=== PATIENT | female | born 1985 | race Caucasian/White ===

== ENCOUNTER 2016-07-25 16:25 | Emergency (ER) | payer SELFPAY ==
[2016-07-25 16:55] VITALS: BP 105/55
[2016-07-25] MEDS ORDERED: HYDROmorphone 1 MG/ML Syringe IVPUSH ONE ×2 (17:22→20:19)
[2016-07-25] MEDS ORDERED: Ondansetron 4 MG/2 ML SDV IVPUSH ONE (17:22)
[2016-07-25] MEDS ORDERED: Sodium Chloride 0.9% 1,000 ML IV SCH (17:30)
--- NOTE | 2016-07-25 18:16 | EDM.PDOC ---
<Richard Echevarria - Last Filed: 07/25/16 18:39> ED HPI GI/ABDOMINAL - General Chief Complaint: Abdominal Pain Stated Complaint: R SIDE PAIN Time Seen by Provider: 07/25/16 16:54 Source of Information: Reports: Patient, Family (Sister), RN notes reviewed History Limitations: Reports: Language barrier (institutional nutrition consultant used) - History of Present Illness INITIAL COMMENTS - FREE TEXT/NARRATIVE: The patient states that she developed right upper quadrant pain this past Friday , 07/21/2016. Is "pinching" in character and waxes and wanes, although has been progressively getting worse. It does not radiate. It is not modifiable with position or food. The patient also reports feeling dizzy this past 07/23/2016, and nauseated today. She states that she had similar pain about 4 years ago, was seen in an ER, and told that she had a fatty liver. 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 Endocrine/Metabolic History: Reports: Obesity/BMI 30+ - Past Surgical History Female Surgical History: Reports: section (x 1), Other (see below) ( Ectopic ) Social & Family History - Tobacco Use Smoking Status *Q: Never Smoker - Alcohol Use Alcohol Use History: Yes Alcohol Use Frequency: Socially - Recreational Drug Use Recreational Drug Use: No - Living Situation & Occupation Living situation: Reports: single, with family (Son & sister) 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) ED ROS GENERAL - Review of Systems Review Of Systems: See Below Constitutional: Reports: no symptoms HEENT: Reports: No symptoms Respiratory: Reports: No Symptoms Cardiovascular: Reports: No symptoms Endocrine: Reports: no symptoms GI/Abdominal: Reports: Constipation (2 weeks ago) : Reports: no symptoms Musculoskeletal: Reports: no symptoms Skin: Reports: no symptoms Neurological: Reports: No Symptoms Psychiatric: Reports: No symptoms Hematologic/Lymphatic: Reports: no symptoms Immunologic: Reports: no symptoms ED EXAM, GI/ABD - Physical Exam Exam: See Below Exam Limited By: Language barrier (institutional nutrition consultant used) General Appearance: alert, WD/WN, no apparent distress Eyes: bilateral: normal appearance, EOMI Ears: normal external exam, hearing grossly normal Nose: normal inspection, no blood Throat/Mouth: Normal inspection, Normal lips, Normal voice, No airway compromise Head: atraumatic, normocephalic Neck: normal inspection, full range of motion Respiratory/Chest: no respiratory distress, lungs clear, normal breath sounds, no accessory muscle use, chest non-tender Cardiovascular: normal peripheral pulses, regular rate, rhythm, no edema, no gallop, no JVD, no murmur, no rub GI/Abdominal: normal bowel sounds, soft, no organomegaly, no distention, no abnormal bruit, no mass, tenderness (Right upper quadrant only. Minimal tenderness in the epigastric region. Nontender elsewhere.), McBurney's sign, other (Obese) Back Exam: normal inspection, full range of motion. No: CVA tenderness (L), CVA tenderness (R) Extremities: normal inspection, normal range of motion, non-tender, normal capillary refill, no pedal edema Neurological: alert, oriented, normal cognition, no motor/sensory deficits Psychiatric: normal affect Skin Exam: Warm, Dry, Intact, Normal color, No rash Lymphatic: no adenopathy Course - Vital Signs Last Recorded V/S: Last Vital Signs Temp 97.8 F 07/25/16 16:52 Pulse 79 07/25/16 16:52 Resp 18 07/25/16 16:52 BP 105/55 L 07/25/16 16:52 Pulse Ox 99 07/25/16 16:52 - Orders/Labs/Meds Orders: Active Orders 24 hr Category Date Time Status Sodium Chloride 0.9% [Normal Saline] 1,000 ml Med 07/25/16 17:30 Active IV ASDIRECTED Sodium Chloride 0.9% [Saline Flush] Med 07/25/16 19:45 Active 10 ml FLUSH ONETIME PRN Medication Orders Sodium Chloride (Normal Saline) 1,000 mls @ 150 mls/hr IV ASDIRECTED HERMAN Last Admin: 07/25/16 17:39 Dose: 150 mls/hr Sodium Chloride (Saline Flush) 10 ml FLUSH ONETIME PRN PRN Reason: IV FLUSH Last Admin: 07/25/16 20:09 Dose: 10 ml Labs: Laboratory Tests 07/25/16 07/25/16 07/25/16 Range/Units 17:48 17:48 18:00 WBC 9.91 (3.98-10.04) K/mm3 RBC 4.56 (3.98-5.22) M/mm3 Hgb 12.5 (11.2-15.7) gm/L Hct 38.8 (34.1-44.9) % MCV 85.1 (79.4-94.8) fl MCH 27.4 (25.6-32.2) pg MCHC 32.2 (32.2-35.5) g/dl RDW Std Deviation 46.6 H (36.4-46.3) fL Plt Count 327 (182-369) K/mm3 MPV 9.2 L (9.4-12.3) fl Neutrophils % (Manual) 64 H (40-60) % Band Neutrophils % 0 (0-10) % Lymphocytes % (Manual) 27 (20-40) % Atypical Lymphs % 0 % Monocytes % (Manual) 6 (2-10) % Eosinophils % (Manual) 3 (0.7-5.8) % Basophils % (Manual) 0 L (0.1-1.2) Platelet Estimate Adequate RBC Morph Comment Normal Sodium 141 (136-145) mEq/L Potassium 3.7 (3.5-5.1) mEq/L Chloride 103 (98-107) mEq/L Carbon Dioxide 26 (21-32) mEq/L Anion Gap 15.7 H (5-15) BUN 19 H (7-18) mg/dL Creatinine 1.1 H (0.55-1.02) mg/dL Est Cr Clr Drug Dosing TNP Estimated GFR (MDRD) 59 (>60) mL/min BUN/Creatinine Ratio 17.3 (14-18) Glucose 106 (74-106) mg/dL Calcium 9.2 (8.5-10.1) mg/dL Total Bilirubin 0.4 (0.2-1.0) mg/dL AST 14 L (15-37) U/L ALT 28 (14-59) U/L Alkaline Phosphatase 78 (46-116) U/L Total Protein 8.1 (6.4-8.2) g/dl Albumin 4.0 (3.4-5.0) g/dl Globulin 4.1 gm/dL Albumin/Globulin Ratio 1.0 (1-2) Lipase 339 (73-393) U/L Urine Color (Yellow) Urine Appearance (Clear) Urine pH (5.0-8.0) Ur Specific Mcleod (1.005-1.030) Urine Protein (Negative) Urine Glucose (UA) (Negative) Urine Ketones (Negative) Urine Occult Blood (Negative) Urine Nitrite (Negative) Urine Bilirubin (Negative) Urine Urobilinogen (0.2-1.0) Ur Leukocyte Esterase (Negative) Urine RBC (0-5) /hpf Urine WBC (0-5) /hpf Ur Squamous Epith Cells (0-5) /hpf Amorphous Sediment (NOT SEEN) /hpf Urine Bacteria (FEW) /hpf Urine Mucus (FEW) /hpf Urine HCG, Qual Negative (NEGATIVE) 07/25/16 Range/Units 18:00 WBC (3.98-10.04) K/mm3 RBC (3.98-5.22) M/mm3 Hgb (11.2-15.7) gm/L Hct (34.1-44.9) % MCV (79.4-94.8) fl MCH (25.6-32.2) pg MCHC (32.2-35.5) g/dl RDW Std Deviation (36.4-46.3) fL Plt Count (182-369) K/mm3 MPV (9.4-12.3) fl Neutrophils % (Manual) (40-60) % Band Neutrophils % (0-10) % Lymphocytes % (Manual) (20-40) % Atypical Lymphs % % Monocytes % (Manual) (2-10) % Eosinophils % (Manual) (0.7-5.8) % Basophils % (Manual) (0.1-1.2) Platelet Estimate RBC Morph Comment Sodium (136-145) mEq/L Potassium (3.5-5.1) mEq/L Chloride (98-107) mEq/L Carbon Dioxide (21-32) mEq/L Anion Gap (5-15) BUN (7-18) mg/dL Creatinine (0.55-1.02) mg/dL Est Cr Clr Drug Dosing Estimated GFR (MDRD) (>60) mL/min BUN/Creatinine Ratio (14-18) Glucose (74-106) mg/dL Calcium (8.5-10.1) mg/dL Total Bilirubin (0.2-1.0) mg/dL AST (15-37) U/L ALT (14-59) U/L Alkaline Phosphatase (46-116) U/L Total Protein (6.4-8.2) g/dl Albumin (3.4-5.0) g/dl Globulin gm/dL Albumin/Globulin Ratio (1-2) Lipase (73-393) U/L Urine Color Yellow (Yellow) Urine Appearance Clear (Clear) Urine pH 6.5 (5.0-8.0) Ur Specific Mcleod > or = 1.030 (1.005-1.030) Urine Protein 1+ H (Negative) Urine Glucose (UA) Negative (Negative) Urine Ketones Negative (Negative) Urine Occult Blood Negative (Negative) Urine Nitrite Negative (Negative) Urine Bilirubin Negative (Negative) Urine Urobilinogen 1.0 (0.2-1.0) Ur Leukocyte Esterase Negative (Negative) Urine RBC 0-5 (0-5) /hpf Urine WBC 0-5 (0-5) /hpf Ur Squamous Epith Cells 0-5 (0-5) /hpf Amorphous Sediment Few H (NOT SEEN) /hpf Urine Bacteria Few (FEW) /hpf Urine Mucus Few (FEW) /hpf Urine HCG, Qual (NEGATIVE) Meds: Medications Generic Name Dose Route Start Last Admin Trade Name Freq PRN Reason Stop Dose Admin Sodium Chloride 1,000 mls @ 150 mls/hr 07/25/16 17:30 07/25/16 17:39 Normal Saline IV 150 mls/hr ASDIRECTED HERMAN Administration Sodium Chloride 10 ml 07/25/16 19:45 07/25/16 20:09 Saline Flush FLUSH 10 ml ONETIME PRN Administration IV FLUSH Discontinued Medications Generic Name Dose Route Start Last Admin Trade Name Freq PRN Reason Stop Dose Admin Diatrizoate Meglum/Diatrizoate Sod 90 ml 07/25/16 19:45 07/25/16 20:09 Gastrografin 37% PO 07/25/16 19:46 90 ml ONETIME ONE Administration Hydromorphone HCl 1 mg 07/25/16 17:22 07/25/16 17:38 Dilaudid IVPUSH 07/25/16 17:23 1 mg ONETIME ONE Administration Hydromorphone HCl 1 mg 07/25/16 20:19 07/25/16 20:27 Dilaudid IVPUSH 07/25/16 20:20 1 mg ONETIME ONE Administration Iopamidol 150 ml 07/25/16 19:45 07/25/16 20:09 Isovue-300 (61%) IVPUSH 07/25/16 19:46 150 ml ONETIME ONE Administration Ondansetron HCl 4 mg 07/25/16 17:22 07/25/16 17:39 Zofran IVPUSH 07/25/16 17:23 4 mg ONETIME ONE Administration - Re-Assessments/Exams Free Text/Narrative Re-Assessment/Exam: 07/25/16 19:[address] Landa, and care of the patient turned over to him at this time for change of shift. Departure - Departure Disposition: Home, Self-Care 01 Clinical Impression: Abdominal pain Qualifiers: Abdominal location: right upper quadrant Qualified Code(s): R10.11 - Right upper quadrant pain Prescriptions: oxyCODONE HCl/Acetaminophen [Percocet 5-325 mg Tablet] 1 - 2 each PO Q6HR PRN # 20 tablet PRN Reason: Pain Referrals: Neville Hernandez MD [Physician] - 1 Week Forms: ED Department Discharge Additional Instructions: Someone from Dr Flores office will call you with a time to come in to be seen. Avoid any fried fatty food. Take the percocet as needed for pain. Please return if you are worse. <Twan Landa - Last Filed: 07/25/16 21:21> Course - Re-Assessments/Exams Free Text/Narrative Re-Assessment/Exam: 07/25/16 21:[address] Echevarria. The patient's CBC and CMP look good. Her HCG is negative. Her UA does not show a UTI. Her CT shows mild increased stool within the colon. No additional abnormality is seen on CT study of the abdomen and pelvis. She had more pain so I ordered more dilaudid 1mg IV and that helped. I went in with the I pad with a Welsh interpretor to give her results and I answered her questions. I will give her some thing for pain and have her follow up with Dr Hernandez and avoid any fatty fried food. Departure - Departure Time of Disposition: 21:20 Condition: good
[2016-07-25] MEDS ORDERED: Iopamidol 612 MG/ML 150 ML Bottle IVPUSH ONE (19:45)
[2016-07-25] MEDS ORDERED: Diatrizoate Meglumine/Diatrizoate Sodium 37% 120 ML Bottle PO ONE (19:45)
[2016-07-25] MEDS ORDERED: Sodium Chloride 0.9% 10 ML Syringe FLUSH PRN (19:45)
--- NOTE | 2016-07-25 20:28 | CT ---
CT abdomen and pelvis Technique: Multiple axial sections were obtained from above the dome of the diaphragm inferiorly through the pubic symphysis. Intravenous and oral contrast was utilized. Delayed images were also obtained through the bladder. Comparison: No previous abdominal imaging. Findings: Visualized lung bases are clear. Liver shows no focal parenchymal abnormality. Spleen appears within normal limits. Adrenal glands show no nodule. Kidneys show symmetric contrast enhancement without hydronephrosis or mass. Pancreas is within normal limits. Gallbladder shows no calcified gallstones. Aorta shows no aneurysmal dilatation. No retroperitoneal adenopathy is seen. No mesenteric abnormalities are seen. No pelvic mass or adenopathy is seen. Appendix is seen which appears normal. No inflammatory change or free fluid is seen within the abdomen or pelvis. No bowel dilatation is seen. Increased stool is noted within the colon. Bone window settings were reviewed which appear within normal limits for the patient's age. Delayed images shows contrast within the distal ureters and within the bladder. Impression: 1. Mild increased stool within the colon. 2. No additional abnormality is seen on CT study of the abdomen and pelvis. Diagnostic code #2
== END 2016-07-25 21:45 | disposition home or self-care (01) ==
LOC: JD.ED 16:25
DX: R10.11 Right upper quadrant pain (principal); E66.9 Obesity, unspecified; Z79.899 Other long term (current) drug therapy
CPT/HCPCS: 36415; 74177; 80053; 81001; 81025; 83690; 85025; 96361; 96374; 96375; 96376; 99285; J1170; J2405; J7040; J7050; P9612; Q9963; Q9967; 99284

== ENCOUNTER 2016-08-05 07:21 | Day surgery (SDC) | payer SELFPAY ==
[~2016-08-05 07:21] MED LIST: Lactated Ringers 1,000 ML IV SCH; Lidocaine 1%/Sod Bicarbonate in NS 8.4% 1 ML Syringe IV PRN; Sodium Chloride 0.9% 10 ML Syringe FLUSH PRN
--- NOTE | 2016-08-05 07:44 | PCM.PREANE ---
Preanesthetic Assessment - Anesthesia/Transfusion/Family Hx Anesthesia History: Prior Anesthesia Without Reaction Family History of Anesthesia Reaction: No Transfusion History: No Prior Transfusion(s) - Review of Systems General: No Symptoms Pulmonary: No Symptoms Cardiovascular: No Symptoms Gastrointestinal: Abdominal pain Neurological: Numbness (toes and underside of right arm on and off) - Physical Assessment NPO Status Date: 08/04/16 NPO Status Time: 22:00 Pulse: 76 O2 Sat by Pulse Oximetry: 97 Respiratory Rate: 16 Blood Pressure: 112/72 Temperature: 36.8 C Height: 1.52 m Weight: 89.811 kg ASA Class: 2 Mental Status: Alert & Oriented x3 Airway Class: Mallampati = 2 Dentition: Reports: Normal Dentition Thyro-Mental Finger Breadths: 2 Mouth Opening Finger Breadths: 2 ROM/Head Extension: Full Lungs: Clear to auscultation, Normal respiratory effort Cardiovascular: Regular Rate, Regular Rhythm, No Murmurs - Allergies Allergies/Adverse Reactions: Allergies Allergy/AdvReac Type Severity Reaction Status Date / Time No Known Allergies Allergy Verified 07/25/16 16:55 - Blood Blood Available: No Product(s) Available: None - Anesthesia Plan Pre-Op Medication Ordered: None - Acknowledgements Anesthesia Type Planned: MAC Pt an Appropriate Candidate for the Planned Anesthesia: Yes Alternatives and Risks of Anesthesia Discussed w Pt/Guardian: Yes Pt/Guardian Understands and Agrees with Anesthesia Plan: Yes PreAnesthesia Questionnaire HEENT History: Reports: None Cardiovascular History: Reports: High cholesterol Respiratory History: Reports: None Gastrointestinal History: Reports: Chronic constipation, Other (see below) Other Gastrointestinal History: RUQ pain 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 , , Other (see below) Other OB/BYN History: bacterial vaginosis Musculoskeletal History: Reports: None Neurological History: Reports: None Psychiatric History: Reports: Anxiety Endocrine/Metabolic History: Reports: Obesity/BMI 30+ Hematologic History: Reports: None Immunologic History: Reports: None Oncologic (Cancer) History: Reports: None Dermatologic History: Reports: Other (see below) Other Dermatologic History: acanthesis nigricans - Past Surgical History Head Surgeries/Procedures: Reports: None Female Surgical History: Reports: section, Tubal ligation, Other ( see below) - SUBSTANCE USE Smoking Status *Q: Current Some Day Smoker Tobacco Use Within Last Twelve Months: Cigarettes Second Hand Smoke Exposure: Yes Days Per Week of Alcohol Use: 1 Number of Drinks Per Day: 0 Total Drinks Per Week: 0 Recreational Drug Use History: No - HOME MEDS Home Medications: Home Meds Docusate Sodium [Colace] 100 mg PO ASDIRECTED PRN 07/25/16 [History] Polyethylene Glycol 3350 [MiraLAX] 1 dose PO DAILY PRN 07/25/16 [History] oxyCODONE HCl/Acetaminophen [Percocet 5-325 mg Tablet] 1 - 2 each PO Q6HR PRN # 20 tablet 07/25/16 [Rx] - CURRENT (IN HOUSE) MEDS Current Meds: Current Medications Lactated Ringer's (Ringers, Lactated) 1,000 mls @ 125 mls/hr IV ASDIRECTED HERMAN Stop: 08/05/16 23:00 Lidocaine/Sodium Bicarbonate (Buffered Lidocaine 1% In Ns 8.4%) 0.25 ml IV ONETIME PRN PRN Reason: Prior to IV Start Stop: 08/05/16 18:00 Sodium Chloride (Saline Flush) 10 ml FLUSH ASDIRECTED PRN PRN Reason: Keep Vein Open Stop: 08/05/16 18:00 Preanesthetic Assessment - ALLERGIES Allergies/Adverse Reactions: Allergies Allergy/AdvReac Type Severity Reaction Status Date / Time No Known Allergies Allergy Verified 07/25/16 16:55
[2016-08-05] MEDS ORDERED: Midazolam 1 MG/ML 2 ML SDV ONE (08:18)
[2016-08-05] MEDS ORDERED: Lidocaine 1% 4 ML ONE (08:18)
[2016-08-05] MEDS ORDERED: Propofol 200 MG/20 ML SDV ONE (08:18)
--- NOTE | 2016-08-05 09:01 | PCM.OPNOTE ---
- General Post-Op/Procedure Note Date of Surgery/Procedure: 08/05/16 Operative Procedure(s): EGD with antral and gastric biopsies Findings: normal EGD Pre Op Diagnosis: dyspepsia Post-Op Diagnosis: normal EGD Anesthesia Technique: MAC, Moderate sedation Primary Surgeon: Neville Hernandez Pathology: gastric and antral biopsies x2 EBL in mLs: 0 Complications: None Condition: Good Free Text/Narrative:: After adequate IV sedation and analgesia was obtained the patient was placed on her left side. Through a bite lock a lubricated upper endoscope was inserted into the esophagus and then advanced under direct vision to the stomach. Additional air was given here. The pylorus was entered to the second part of the duodenum. The second, and first portions were endoscopically normal with no inflammation. The antrum was also unremarkable. The retroflexed view revealed no hiatal hernia, and a normal fundus. The body of the stomach was normal. The gastric motility was grossly normal. Because of the normal endoscopic findings I took 2 random biopsies of the antrum and body of the stomach for histologic review given this patient's history. The scope was withdrawn to the GE junction , which was unremarkable. The remainder of the esophagus was endoscopically normal. Air was removed, as I finished the procedure, which she tolerated well. Occupational Therapy Asst photographs taken for the patient and for the record.
[2016-08-05 09:32] VITALS: BP 114/82
== END 2016-08-05 10:01 | disposition home or self-care (01) ==
LOC: JD.SDS 07:21
PROVIDERS: ATTEND Surgery
PROC: 0DB68ZZ Excision of Stomach, Via Natural or Artificial Opening Endoscopic (ICD-10-PCS; principal; 2016-08-05)
PROC: 0DB78ZZ Excision of Stomach, Pylorus, Via Natural or Artificial Opening Endoscopic (ICD-10-PCS; 2016-08-05)
DX: R10.13 Epigastric pain (principal); F41.9 Anxiety disorder, unspecified; E66.01 Morbid (severe) obesity due to excess calories; Z68.38 Body mass index [BMI] 38.0-38.9, adult; E78.00 Pure hypercholesterolemia, unspecified; K59.09 Other constipation; F17.210 Nicotine dependence, cigarettes, uncomplicated
CPT/HCPCS: 43239; 88305; J2250; J7120; J2704

== ENCOUNTER 2017-10-06 19:55 | Emergency (ER) | payer SELFPAY ==
[2017-10-06] MEDS ORDERED: Ondansetron 4 MG/2 ML SDV ONE (21:22)
[2017-10-06] MEDS ORDERED: Sodium Chloride 0.9% 1,000 ML ONE (21:22)
[2017-10-06] MEDS ORDERED: Dicyclomine 10 MG Cap ONE (21:22)
[2017-10-06] MEDS ORDERED: HYDROmorphone 0.5 MG/0.5 ML SYRINGE ONE (21:23)
[2017-10-07 03:12] VITALS: BP 113/75
--- NOTE | 2017-10-07 10:26 | CR ---
Abdominal series: Supine and upright views of the abdomen were obtained as well as frontal view of the chest. Comparison: No prior plain film exam. Heart size and mediastinum are normal. Lungs are clear. Bowel gas pattern appears normal. No abnormal calcifications or soft tissue abnormality is seen. Bony structures are unremarkable. No free air is seen. Impression: 1. No abnormality is identified on abdominal series. Diagnostic code #1
--- NOTE | 2017-10-08 14:25 | US ---
Limited abdominal ultrasound: Multiple real-time images of the upper right abdomen were obtained. Comparison: Previous right upper quadrant abdominal ultrasound of 07/29/16 is available. Findings: Liver shows no focal parenchymal abnormality. Liver is slightly echogenic in relation to the kidney raising the possibility of fatty infiltration. Gallbladder contains no gallstones. No gallbladder wall thickening or biliary ductal dilatation is seen. Right kidney shows no hydronephrosis or mass and has a length of 11.7 cm. Pancreas is incompletely seen. Visualized portions of the pancreas are within normal limits. Impression: 1. Findings suspicious for fatty infiltration within the liver. 2. No additional abnormality is appreciated on right upper quadrant abdominal ultrasound. Diagnostic code #3 I agree with preliminary report from [facility], finalized at 10/06/17, 11:46 PM Central Time
--- NOTE | 2017-10-09 11:49 | EDM.PDOC ---
ED HPI GENERAL MEDICAL PROBLEM - General Stated Complaint: PANIC ATTACK Time Seen by Provider: 10/06/17 20:37 Source of Information: Reports: Patient, Family History Limitations: Reports: Language Barrier - History of Present Illness INITIAL COMMENTS - FREE TEXT/NARRATIVE: Patient is a 31-year-old female presents ED complaining of nausea, headache, and right-sided upper quadrant abdominal pain for the past 2 weeks. Patient states pain worsens with eating greasy foods. Pain is intermittent sharp achy at times. With no radiation. She has had discomfort approximate 1 year ago had testing done on her gallbladder with no definitive diagnosis twice she's having pain to the right side. She's had no follow-up since. Questions being . Last menstrual cycle was 09/18/2017. She denies any fever, shortness breath, chest pain, diarrhea, dysuria, acid reflux, or any additional complaints. Last meal was a partially 3 hours ago consisting of 1 talk oh. She is a history of type 2 diabetes and is on metformin. She is history of ectopic and C- section. She smokes one pack a month. Alcohol use occasionally. Denies any recreational drug use. - Related Data Allergies Allergy/AdvReac Type Severity Reaction Status Date / Time No Known Allergies Allergy Verified 10/07/17 15:35 Home Meds: Home Meds Docusate Sodium [Colace] 100 mg PO ASDIRECTED PRN 07/25/16 [History] Polyethylene Glycol 3350 [MiraLAX] 1 dose PO DAILY PRN 07/25/16 [History] oxyCODONE HCl/Acetaminophen [Percocet 5-325 mg Tablet] 1 - 2 each PO Q6HR PRN # 20 tablet 07/25/16 [Rx] Vitamin E 1 tab PO DAILY 08/05/16 [History] Past Medical History HEENT History: Reports: None Cardiovascular History: Reports: High Cholesterol Respiratory History: Reports: None Gastrointestinal History: Reports: Chronic Constipation, Other (See Below) Other Gastrointestinal History: RUQ pain 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 , , Other (See Below) Other OB/BYN History: bacterial vaginosis Musculoskeletal History: Reports: None Neurological History: Reports: None Psychiatric History: Reports: Anxiety Endocrine/Metabolic History: Reports: Obesity/BMI 30+ Hematologic History: Reports: None Immunologic History: Reports: None Oncologic (Cancer) History: Reports: None Dermatologic History: Reports: Other (See Below) Other Dermatologic History: acanthesis nigricans - Past Surgical History Female Surgical History: Reports: Section, Tubal Ligation, Other ( See Below) Social & Family History - Living Situation & Occupation Living situation: Reports: Single, with Family Occupation: Employed ED ROS GENERAL - Review of Systems Review Of Systems: ROS reveals no pertinent complaints other than HPI. ED EXAM, GI/ABD - Physical Exam Exam: See Below Exam Limited By: Language Barrier General Appearance: Alert, WD/WN, No Apparent Distress, Obese Ears: Hearing Grossly Normal Nose: Normal Inspection Throat/Mouth: Normal Voice, No Airway Compromise Neck: Normal Inspection, Supple Respiratory/Chest: No Respiratory Distress, Lungs Clear, Normal Breath Sounds, No Accessory Muscle Use, Chest Non-Tender Cardiovascular: Normal Peripheral Pulses, Regular Rate, Rhythm GI/Abdominal Exam: Normal Bowel Sounds, Soft, No Organomegaly, No Distention, Tender (Positive Ortega sign. Negative McBurney's point. No adnexal tenderness. No epigastric pain.) Back Exam: Normal Inspection. No: CVA Tenderness (L), CVA Tenderness (R) Extremities: Normal Inspection Neurological: Alert, Oriented, CN II-XII Intact, Normal Cognition, No Motor/ Sensory Deficits Psychiatric: Normal Affect, Normal Mood Skin Exam: Warm, Dry, Intact, Normal Color, No Rash Course - Vital Signs Last Recorded V/S: Last Vital Signs Temp 97.8 F 10/07/17 03:10 Pulse 90 10/07/17 03:10 Resp 18 10/07/17 03:10 BP 113/75 10/07/17 03:10 Pulse Ox 99 10/07/17 03:10 - Orders/Labs/Meds Labs: Laboratory Tests 10/06/17 10/06/17 10/06/17 Range/Units 20:54 20:54 20:54 WBC 9.06 (3.98-10.04) K/mm3 RBC 4.51 (3.98-5.22) M/mm3 Hgb 12.8 (11.2-15.7) gm/L Hct 39.1 (34.1-44.9) % MCV 86.7 (79.4-94.8) fl MCH 28.4 (25.6-32.2) pg MCHC 32.7 (32.2-35.5) g/dl RDW Std Deviation 46.3 (36.4-46.3) fL Plt Count 371 H (182-369) K/mm3 MPV 8.9 L (9.4-12.3) fl Neutrophils % (Manual) 58 (40-60) % Lymphocytes % (Manual) 38 (20-40) % Monocytes % (Manual) 1 L (2-10) % Eosinophils % (Manual) 3 (0.7-5.8) % Platelet Estimate Adequate RBC Morph Comment Normal Sodium 138 (136-145) mEq/L Potassium 3.7 (3.5-5.1) mEq/L Chloride 101 (98-107) mEq/L Carbon Dioxide 25 (21-32) mEq/L Anion Gap 15.7 H (5-15) BUN 13 (7-18) mg/dL Creatinine 0.9 (0.55-1.02) mg/dL Est Cr Clr Drug Dosing 72.29 mL/min Estimated GFR (MDRD) > 60 (>60) mL/min BUN/Creatinine Ratio 14.4 (14-18) Glucose 107 H (74-106) mg/dL Calcium 9.6 (8.5-10.1) mg/dL Total Bilirubin 0.4 (0.2-1.0) mg/dL AST 43 H (15-37) U/L ALT 74 H (14-59) U/L Alkaline Phosphatase 75 (46-116) U/L C-Reactive Protein 0.6 (<1.0) mg/dL Total Protein 8.6 H (6.4-8.2) g/dl Albumin 4.0 (3.4-5.0) g/dl Globulin 4.6 gm/dL Albumin/Globulin Ratio 0.9 L (1-2) Lipase 267 (73-393) U/L Urine Color (Yellow) Urine Appearance (Clear) Urine pH (5.0-8.0) Ur Specific [place] (1.005-1.030) Urine Protein (Negative) Urine Glucose (UA) (Negative) Urine Ketones (Negative) Urine Occult Blood (Negative) Urine Nitrite (Negative) Urine Bilirubin (Negative) Urine Urobilinogen (0.2-1.0) Ur Leukocyte Esterase (Negative) Urine RBC (0-5) /hpf Urine WBC (0-5) /hpf Ur Epithelial Cells (0-5) /hpf Urine Bacteria (FEW) /hpf Urine Mucus (FEW) /hpf Urine HCG, Qual Negative (NEGATIVE) 10/06/17 Range/Units 20:54 WBC (3.98-10.04) K/mm3 RBC (3.98-5.22) M/mm3 Hgb (11.2-15.7) gm/L Hct (34.1-44.9) % MCV (79.4-94.8) fl MCH (25.6-32.2) pg MCHC (32.2-35.5) g/dl RDW Std Deviation (36.4-46.3) fL Plt Count (182-369) K/mm3 MPV (9.4-12.3) fl Neutrophils % (Manual) (40-60) % Lymphocytes % (Manual) (20-40) % Monocytes % (Manual) (2-10) % Eosinophils % (Manual) (0.7-5.8) % Platelet Estimate RBC Morph Comment Sodium (136-145) mEq/L Potassium (3.5-5.1) mEq/L Chloride (98-107) mEq/L Carbon Dioxide (21-32) mEq/L Anion Gap (5-15) BUN (7-18) mg/dL Creatinine (0.55-1.02) mg/dL Est Cr Clr Drug Dosing mL/min Estimated GFR (MDRD) (>60) mL/min BUN/Creatinine Ratio (14-18) Glucose (74-106) mg/dL Calcium (8.5-10.1) mg/dL Total Bilirubin (0.2-1.0) mg/dL AST (15-37) U/L ALT (14-59) U/L Alkaline Phosphatase (46-116) U/L C-Reactive Protein (<1.0) mg/dL Total Protein (6.4-8.2) g/dl Albumin (3.4-5.0) g/dl Globulin gm/dL Albumin/Globulin Ratio (1-2) Lipase (73-393) U/L Urine Color Yellow (Yellow) Urine Appearance Clear (Clear) Urine pH 6.5 (5.0-8.0) Ur Specific [place] 1.025 (1.005-1.030) Urine Protein Trace H (Negative) Urine Glucose (UA) Negative (Negative) Urine Ketones Negative (Negative) Urine Occult Blood Negative (Negative) Urine Nitrite Negative (Negative) Urine Bilirubin Negative (Negative) Urine Urobilinogen 0.2 (0.2-1.0) Ur Leukocyte Esterase Negative (Negative) Urine RBC 0-5 (0-5) /hpf Urine WBC 0-5 (0-5) /hpf Ur Epithelial Cells 0-5 (0-5) /hpf Urine Bacteria Few (FEW) /hpf Urine Mucus Few (FEW) /hpf Urine HCG, Qual (NEGATIVE) Meds: Medications Discontinued Medications Generic Name Dose Route Start Last Admin Trade Name Charles PRN Reason Stop Dose Admin Dicyclomine HCl Confirm 10/06/17 21:22 Bentyl Administered 10/06/17 21:23 Dose 10 mg .ROUTE .STK-MED ONE Hydromorphone HCl Confirm 10/06/17 21:23 Dilaudid Administered 10/06/17 21:24 Dose 0.5 mg .ROUTE .STK-MED ONE Sodium Chloride Confirm 10/06/17 21:22 Normal Saline Administered 10/06/17 21:23 Dose 1,000 mls @ as directed .ROUTE .STK-MED ONE Ondansetron HCl Confirm 10/06/17 21:22 Zofran Administered 10/06/17 21:23 Dose 4 mg .ROUTE .STK-MED ONE - Re-Assessments/Exams Free Text/Narrative Re-Assessment/Exam: IV established with NS 150 mL per hour, Zofran 4 mg IVP, Dilaudid 0.5 mg IVP, Bentyl 10 mg. Initial labs and studies include CMP, CBC, CRP, lipase, UA, urine hCG, direct bilirubin, GGT, and chest x-ray with abdomen series. Abdomen limited ultrasound ordered to evaluate gallbladder HCG negative. UA trace protein otherwise no other concerning findings. Lipase 267. AST 43. ALT 75. Sodium 1:30, potassium 3.7, direct bilirubin 0.1, GGT 39, creatinine 0.93, CRP 0.6. White blood count 9.06, hemoglobin 12.8, platelet count 371, neutrophil 58. Ultrasound right upper quadrant impression: Probable fatty liver. X-ray of the chest did not reveal any acute findings. Final interpretation is pending. X-ray of the abdomen revealed increased stool pattern along the right hemoglobin with nonspecific air pattern. I will obtain a HIDA scan to evaluate gallbladder function. She will need to follow-up with her primary care provider. 10/09/2017 HIDA scan impression: Normal biliary HIDA scan with normal gallbladder ejection fraction. I did call the patient and provide results. She was instructed to followup with PCP. Departure - Departure Time of Disposition: 10:46 Disposition: Home, Self-Care 01 Condition: Good Clinical Impression: Biliary colic Constipation Qualifiers: Constipation type: unspecified constipation type Qualified Code(s): K59.00 - Constipation, unspecified - Discharge Information Referrals: PCP,None [Primary Care Provider] -
== END 2017-10-07 00:08 | disposition home or self-care (01) ==
LOC: JD.ED 19:55
DX: K80.50 Calculus of bile duct without cholangitis or cholecystitis without obstruction (principal); K59.00 Constipation, unspecified; Z79.899 Other long term (current) drug therapy; E78.00 Pure hypercholesterolemia, unspecified
CPT/HCPCS: 36415; 74022; 76705; 80053; 81001; 81025; 83690; 85007; 85027; 86140; 96361; 96374; 96375; 99284; A9270; J1170; J2405; J7040

== ENCOUNTER 2019-07-26 07:14 | Inpatient (IN) | payer OTHER, MEDICAID ==
[~2019-07-26 07:14] MED LIST changes: +Bupivacaine 0.25% 10 ML SDV ONE; -Lactated Ringers 1,000 ML IV SCH; -Lidocaine 1%/Sod Bicarbonate in NS 8.4% 1 ML Syringe IV PRN; -Sodium Chloride 0.9% 10 ML Syringe FLUSH PRN
[2019-07-26] MEDS ORDERED: Famotidine 20 MG Tab PO PRN (08:05)
[2019-07-26] MEDS ORDERED: Ondansetron 4 MG/2 ML SDV IVPUSH PRN ×2 (08:05→08:08)
[2019-07-26] MEDS ORDERED: Acetaminophen 325 MG Tab PO PRN (08:05)
[2019-07-26] MEDS ORDERED: Lidocaine 1% 50 ML MDV INJECT ONE (08:05)
[2019-07-26] MEDS ORDERED: Sodium Chloride 0.9% 10 ML Syringe FLUSH PRN (08:05)
[2019-07-26] MEDS ORDERED: fentaNYL 100 MCG/2 ML SDV EPIDUR PRN (08:08)
[2019-07-26] MEDS ORDERED: ePHEDrine 50 MG/ML SDV IVPUSH PRN (08:08)
--- NOTE | 2019-07-26 08:11 | PCM.PREANE ---
Preanesthetic Assessment - Procedure Proposed Procedure: Epidural - Anesthesia/Transfusion/Family Hx Anesthesia History: Prior Anesthesia Without Reaction Family History of Anesthesia Reaction: No Transfusion History: Unknown Intubation History: Unknown - Review of Systems General: No Symptoms Pulmonary: No Symptoms (Former smoker/no longer smokes) Cardiovascular: No Symptoms (Elevated cholesterol) Gastrointestinal: No Symptoms (GERD with ), Constipation (chronic) Neurological: Tingling (bilateral feet due to anxiety per patient) Other: Reports: Diabetes (pre-diabetes), Liver Problems (fatty liver), Anxiety ( 2008 nervous breakdown) - Physical Assessment NPO Status Date: 07/26/19 NPO Status Time: 09:30 Vital Signs: HR:76 BP:112/86 Resp:16 Sat:96% Temp:98.1 Height: 1.52 m Weight: 103 kg ASA Class: 2 Mental Status: Alert & Oriented x3 Airway Class: Mallampati = 2 Dentition: Reports: Normal Dentition, Caries Thyro-Mental Finger Breadths: 3 Mouth Opening Finger Breadths: 3 ROM/Head Extension: Full Lungs: Clear to Auscultation, Normal Respiratory Effort Cardiovascular: Regular Rate, Regular Rhythm, No Murmurs - Allergies Allergies/Adverse Reactions: Allergies Allergy/AdvReac Type Severity Reaction Status Date / Time No Known Allergies Allergy Verified 10/07/17 15:35 - Anesthesia Plan Pre-Op Medication Ordered: None - Acknowledgements Anesthesia Type Planned: Epidural Pt an Appropriate Candidate for the Planned Anesthesia: Yes Alternatives and Risks of Anesthesia Discussed w Pt/Guardian: Yes Pt/Guardian Understands and Agrees with Anesthesia Plan: Yes PreAnesthesia Questionnaire HEENT History: Reports: None Cardiovascular History: Reports: High Cholesterol Respiratory History: Reports: None Gastrointestinal History: Reports: Chronic Constipation, Other (See Below) Other Gastrointestinal History: RUQ pain [employer]ET[employer]IN[employer]IAN 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 , , Other (See Below) Other OB/BYN History: bacterial vaginosis Musculoskeletal History: Reports: None Neurological History: Reports: None Psychiatric History: Reports: Anxiety Endocrine/Metabolic History: Reports: Obesity/BMI 30+ Hematologic History: Reports: None Immunologic History: Reports: None Oncologic (Cancer) History: Reports: None Dermatologic History: Reports: Other (See Below) Other Dermatologic History: acanthesis nigricans - Past Surgical History Female Surgical History: Reports: Section, Tubal Ligation, Other ( See Below) - HOME MEDS Home Medications: Home Meds Docusate Sodium [Colace] 100 mg PO ASDIRECTED PRN 07/25/16 [History] Polyethylene Glycol 3350 [MiraLAX] 1 dose PO DAILY PRN 07/25/16 [History] oxyCODONE HCl/Acetaminophen [Percocet 5-325 mg Tablet] 1 - 2 each PO Q6HR PRN # 20 tablet 07/25/16 [Rx] Vitamin E 1 tab PO DAILY 08/05/16 [History] - CURRENT (IN HOUSE) MEDS Current Meds: Current Medications Fentanyl/Bupivacaine HCl (Fentanyl/Bupivacaine/Ns 2 Mcg-0.125% 100 Ml) 100 ml EPIDUR ASDIRECTED HERMAN
[2019-07-26] MEDS ORDERED: Oxytocin/Lactated Ringers 10 UNIT/1,000 ML BAG IV SCH ×2 (08:15)
[2019-07-26] MEDS ORDERED: Bupivacaine/fentaNYL/NS 100 ML Bag EPIDUR SCH (08:15)
[2019-07-26] MEDS: Lactated Ringers 1,000 ML IV SCH ×4 (08:46→23:53)
--- NOTE | 2019-07-26 17:26 | PCM.LDHP ---
L&D History of Present Illness - General Date of Service: 07/26/19 Admit Problem/Dx: Patient Status Order with Admit Dx/Problem 07/26/19 08:05 Patient Status [ADT] Routine Admission Diagnosis/Problem Admission Diagnosis/Problem Source of Information: Patient History Limitations: Reports: Language Barrier - History of Present Illness Introduction:: 33 year old A2 female at 39+5 weeks gestation with EDC of 07/28/19 based on early ultrasound. She is admitted for elective induction of labor, and she is TOLAC. First baby delivered by section due to failure to progress and distress and baby was OP presentation. She consulted with Dr. Ndiaye to discuss risks and benefits of TOLAC and she would like to attempt vaginal delivery. She is GBS negative, Blood type O positive. She has a history of prediabetes and was on metformin for a period before her . HEr A1C was 5.60 in 01/2019 and we just rechecked it and it is still wnl. Her 1 hour glucola was 131. She had the Prequel test that was negative for Trisomy and female sex, XX. Her infectious disease testing was all negative. She has not been having contractions. Cervix was 1-2 cm, soft, 30% effaced and station -3 on admission. Retana catheter was placed through the cervical os using speculum and ring forceps and 30 ml balloon was inflated and traction applied by taping it to her leg. Pitocin IV was also started for induction of labor. Consent form signed for TOLAC and possible section. Dr. Loera is front services agent for OB and I notified him this am about the patient being induced. CBC and type and screen ordered. - Related Data Allergies/Adverse Reactions: Allergies Allergy/AdvReac Type Severity Reaction Status Date / Time No Known Allergies Allergy Verified 07/26/19 10:45 Home Medications: Home Meds Aspirin 81 mg PO DAILY 07/26/19 [History] Docusate Sodium [Colace] 100 mg PO BID PRN 07/26/19 [History] No122/Iron/Folic Acid [ Multi Tablet] 1 each PO DAILY 07/26/19 [History] polyethylene glycoL 3350 [MiraLAX] 17 gm PO DAILY 07/26/19 [History] Past Medical History HEENT History: Reports: None Cardiovascular History: Reports: High Cholesterol Respiratory History: Reports: None Gastrointestinal History: Reports: Chronic Constipation, Fatty Liver, Other ( See Below) Other Gastrointestinal History: RUQ pain 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 , , Other (See Below) Other OB/BYN History: bacterial vaginosis Musculoskeletal History: Reports: None Neurological History: Reports: None Psychiatric History: Reports: Anxiety Endocrine/Metabolic History: Reports: Hypothyroidism (She was on low dose levothyroxine for a time, but stopped taking the medicine and TSH in early course was wnl.), Obesity/BMI 30+, Other (See Below) (Prediabetes, and was on metformin for a period of time over a year ago, prior to getting .) Other Endocrine/Metabolic History: Pre diabetes, Elevated TSH Hematologic History: Reports: None Immunologic History: Reports: None Oncologic (Cancer) History: Reports: None Dermatologic History: Reports: Other (See Below) Other Dermatologic History: acanthosis nigricans, Vitiligo - Past Surgical History Female Surgical History: Reports: Section, Tubal Ligation, Other ( See Below) Social & Family History - Family History Family Medical History: Noncontributory - Tobacco Use Smoking Status *Q: Light Tobacco Smoker Years of Tobacco use: 0 Packs/Tins Daily: 0 - Recreational Drug Use Recreational Drug Use: No - Living Situation & Occupation Living situation: Reports: Single, with Significant Other, with Family Occupation: Employed H&P Review of Systems - Review of Systems: Review Of Systems: See Below General: Reports: No Symptoms HEENT: Reports: No Symptoms Pulmonary: Reports: No Symptoms Cardiovascular: Reports: No Symptoms Gastrointestinal: Reports: No Symptoms Genitourinary: Reports: No Symptoms Musculoskeletal: Reports: No Symptoms Skin: Reports: No Symptoms Psychiatric: Reports: No Symptoms Neurological: Reports: No Symptoms Hematologic/Lymphatic: Reports: No Symptoms Immunologic: Reports: No Symptoms L&D Exam - Exam Exam: See Below - Vital Signs Vital Signs: Last Vital Signs Temp 36.7 C 07/26/19 08:05 Pulse 76 07/26/19 08:05 Resp 16 07/26/19 08:05 BP 112/86 07/26/19 08:05 Pulse Ox 99 07/26/19 08:05 Weight: 102.965 kg - OB Specific Contraction Duration (sec): no contractions on admission Movement: Active Heart Tones: Present Heart Tones per Min: 140 Heart Rate (FHR) Variability: Moderate (6-25 bmp) Presentation: Vertex Estimated Weight: 7 lb 4 oz on ultrasound 07/18/19 - Benjamin Score Benjamin Score Cervix Position: Posterior Benjamin Score Consistency: Soft Benjamin Score Effacement: 31-50% Benjamin Score Dilation: 1-2 cm Benjamin Score Infant's Station: -3 Benjamin Score Total: 4 - Exam General: Alert, Oriented, Cooperative HEENT: Mucosa Moist & [place], Pupils Equal Neck: Supple, Trachea Midline Lungs: Normal Respiratory Effort Cardiovascular: Regular Rate, Regular Rhythm GI/Abdominal Exam: Soft, Non-Tender Rectal Exam: Deferred Genitourinary: Normal external exam, Normal speculum exam Back Exam: Normal Inspection, Full Range of Motion Extremities: Normal Inspection, No Pedal Edema Skin: Warm, Dry, Intact Neurological: Cranial Nerves Intact Psychiatric: Alert, Normal Affect, Normal Mood - Patient Data Lab Results Last 24 hrs: Laboratory Results - last 24 hr 07/26/19 07/26/19 Range/Units 08:40 08:40 WBC 8.99 (3.98-10.04) K/mm3 RBC 4.25 (3.98-5.22) M/mm3 Hgb 11.6 (11.2-15.7) gm/dl Hct 36.3 (34.1-44.9) % MCV 85.4 (79.4-94.8) fl MCH 27.3 (25.6-32.2) pg MCHC 32.0 L (32.2-35.5) g/dl RDW Std Deviation 55.0 H (36.4-46.3) fL Plt Count 251 (182-369) K/mm3 MPV 10.1 (9.4-12.3) fl Blood Type O POSITIVE Gel Antibody Screen Negative Result Diagrams: 07/26/19 08:40 - Problem List (1) 39 weeks gestation of SNOMED Code(s): 10663920 ICD Code: Z3A.39 - 39 WEEKS GESTATION OF Status: Acute Current Visit: Yes (2) Encounter for trial of labor SNOMED Code(s): 887819219 ICD Code: LAZ1746 - Status: Acute Current Visit: Yes (3) Encounter for elective induction of labor SNOMED Code(s): 376606529 ICD Code: Z34.90 - ENCNTR FOR SUPRVSN OF NORMAL , UNSP, UNSP TRIMESTER Status: Acute Current Visit: Yes (4) Obesity affecting in third trimester SNOMED Code(s): 205208066000, 664290477295 ICD Code: O99.213 - OBESITY COMPLICATING , THIRD TRIMESTER Status : Acute Current Visit: Yes Problem List Initiated/Reviewed/Updated: Yes Orders Last 24hrs: Active Orders 24 hr Category Date Time Status Patient Status [ADT] Routine ADT 07/26/19 08:05 Active Activity as Tolerated [RC] PFP Care 07/26/19 08:05 Active Communication Order [RC] ASDIRECTED Care 07/26/19 08:05 Active Notify Provider [RC] ASDIRECTED Care 07/26/19 08:08 Active Notify Provider [RC] PFP Care 07/26/19 08:05 Active Notify Provider [RC] PRN Care 07/26/19 08:05 Active Peripheral IV Care [RC] Q2HR Care 07/26/19 08:06 Active Regular Diet [DIET] Diet 07/26/19 Breakfast Active RAPID PLASMA REAGIN,RPR [CHEM] Routine Lab 07/26/19 08:40 Received Acetaminophen [Tylenol] Med 07/26/19 08:05 Active 650 mg PO Q4H PRN Bupivacaine/fentaNYL/NS [fentaNYL/Bupivacaine/NS 2 MCG- Med 07/26/19 08:15 Active 0.125% 100 ML] 100 ml EPIDUR ASDIRECTED Famotidine [Pepcid] Med 07/26/19 08:05 Active 20 mg PO Q12H PRN Lactated Ringers [Ringers, Lactated] 1,000 ml Med 07/26/19 08:15 Active IV ASDIRECTED Ondansetron [Zofran] Med 07/26/19 08:08 Active 4 mg IVPUSH ONETIME PRN Ondansetron [Zofran] Med 07/26/19 08:05 Active 4 mg IVPUSH Q4H PRN Oxytocin/Lactated Ringers [Pitocin in LR 10 Units/1,000 Med 07/26/19 08:15 Active ML] 10 unit in 1,000 ml IV .CONTINUOUS Oxytocin/Lactated Ringers [Pitocin in LR 10 Units/1,000 Med 07/26/19 08:15 Active ML] 10 unit in 1,000 ml IV TITRATE Sodium Chloride 0.9% [Saline Flush] Med 07/26/19 08:05 Active 10 ml FLUSH ASDIRECTED PRN ePHEDrine [ePHEDrine sulfate] Med 07/26/19 08:08 Active 5 mg IVPUSH ASDIRECTED PRN fentaNYL [Sublimaze] Med 07/26/19 08:08 Active 100 mcg EPIDUR Q3H PRN Electronic Heart Tones Ext w TOCO [WOMSER] Oth 07/26/19 08:05 Ordered Routine Electronic Heart Tones Internal [WOMSER] Per Unit Oth 07/26/19 08:05 Ordered Routine Peripheral IV Insertion Adult [OM.PC] Routine Oth 07/26/19 08:05 Ordered Resuscitation Status Routine Resus Stat 07/26/19 08:05 Ordered Medication Orders Acetaminophen (Tylenol) 650 mg PO Q4H PRN PRN Reason: Pain (Mild 1-3) and fever Ephedrine Sulfate (Ephedrine Sulfate) 5 mg IVPUSH ASDIRECTED PRN PRN Reason: Hypotension Famotidine (Pepcid) 20 mg PO Q12H PRN PRN Reason: Heartburn Fentanyl (Sublimaze) 100 mcg EPIDUR Q3H PRN PRN Reason: Pain Fentanyl/Bupivacaine HCl (Fentanyl/Bupivacaine/Ns 2 Mcg-0.125% 100 Ml) 100 ml EPIDUR ASDIRECTED HERMAN Lactated Ringer's (Ringers, Lactated) 1,000 mls @ 100 mls/hr IV ASDIRECTED HERMAN Last Admin: 07/26/19 08:46 Dose: 100 mls/hr Oxytocin/Lactated Ringer's (Pitocin In Lr 10 Units/1,000 Ml) 10 unit in 1,000 mls @ 12 mls/hr IV TITRATE HERMAN; Protocol Last Titration: 07/26/19 13:40 Dose: 16 munits/min, 96 mls/hr Titration: 07/26/19 13:10 Dose: 14 munits/min, 84 mls/hr Titration: 07/26/19 12:40 Dose: 12 munits/min, 72 mls/hr Titration: 07/26/19 12:08 Dose: 10 munits/min, 60 mls/hr Titration: 07/26/19 11:32 Dose: 8 munits/min, 48 mls/hr Titration: 07/26/19 11:03 Dose: 6 munits/min, 36 mls/hr Titration: 07/26/19 10:30 Dose: 4 munits/min, 24 mls/hr Admin: 07/26/19 10:00 Dose: 2 munits/min, 12 mls/hr Oxytocin/Lactated Ringer's (Pitocin In Lr 10 Units/1,000 Ml) 10 unit in 1,000 mls @ 500 mls/hr IV .CONTINUOUS HERMAN Ondansetron HCl (Zofran) 4 mg IVPUSH ONETIME PRN PRN Reason: Nausea/Vomiting Ondansetron HCl (Zofran) 4 mg IVPUSH Q4H PRN PRN Reason: Nausea/Vomiting Sodium Chloride (Saline Flush) 10 ml FLUSH ASDIRECTED PRN PRN Reason: Keep Vein Open Assessment/Plan Comment:: 33 year old admitted for elective induction of labor at 39+5 weeks gestation. She is a trial of labor after . Last baby delivered by section due to failure to progress and OP presentation and also distress. She is GBS negative and blood type O positive. She is morbidly obese. Retana catheter placed through the cervical os and 30 ml balloon filled for cervical ripening and then pitocin IV also started. Will monitor closely. Consent signed for TOLAC and possible section and Dr. Loera, OB front services agent is aware. Will plan AROM when appropriate and epidural when patient requests. She plans to breastfeed. Baby girl by Prequel testing showing XX chromosomes.
--- NOTE | 2019-07-26 18:00 | PCM.SN ---
- Free Text/Narrative Note: Patient's coates bulb fell out about 11:30 and the nurse checked her at about 1400 and she was 4 cm dilated at that time. She is having moderately strong contractions every 2 to 3 minutes, lasting 50-80 seconds. She is still comfortable and breathing through her contractions. Pitocin is at 16 mu/min. At 1707, I checked her and she was 5 cm, but cervix still posterior, 60% effaced and station -3 to -2. AROM was done and large amount of clear fluid drained. Patient has felt that contractions are getting stronger since AROM was done. The nurse has been having a hard time keeping baby on the external heart monitor and requested that I place an internal scalp lead. Procedure was explained to patient and performed at 1750. First attempt was unsuccessful, the lead ended up attaching to some membranes. I repeated and was able to get good application to scalp. FHR 150 baseline. Assessment - latent phase of labor. Category I heart rate. Pitocin at 16 mu/min, AROM performed to augment labor and Internal scalp lead applied since having a hard time keeping baby on the monitor with external montitor. Plan - expectant management of labor. Epidural when pt requests.
--- NOTE | 2019-07-26 23:40 | PCM.SN ---
- Free Text/Narrative Note: Patient received an epidural at 2014 and she has been comfortable. Pitocin was decreased after AROM due to tachysystole. She was 5 cm dilated when I performed AROM at 1707. We started seeing early and variable decels after AROM , but that has been worsening and in the last hour have been getting more recurrent variables that are getting down into the 60-70 range and then also some late decels and only minimal variability. She has continued to have regular contractions and have tried increasing the pitocin, but she has not progressed much. At this time, her cervix is still only 5 to 6 cm, 90% effaced and station -1. Fetus has descended and cervix has thinned, but dilation has not progressed and fetus is not tolerating labor. A: intolerance of labor and Failure to progress with ruptured membranes and adequate contractions. Consulted with Dr. Loera, and he agrees with moving to section at this time. P: Repeat section. Dr. Loera will perform section and I will assist. Dr. Givens will be present for delivery and then I will assume care of baby. Discussed with patient and she agrees. Pitocin has been discontinued at this time.
[2019-07-26] MEDS ORDERED: Metoclopramide 10 MG/2 ML SDV IVPUSH ONE (23:46)
[2019-07-26] MEDS ORDERED: Citric Acid/Sodium Citrate Solution 30 ML Cup PO ONE (23:47)
[2019-07-26] MEDS ORDERED: Bupivacaine 0.5% 30 ML SDV ONE (23:53)
[2019-07-26] MEDS ORDERED: ceFAZolin 2 GM in Premix Bag 1 BAG IV ONE (23:54)
[2019-07-26] MEDS ORDERED: Oxytocin 10 Units/1 ML SDV ONE (23:55)
[2019-07-26] MEDS ORDERED: Ondansetron 4 MG/2 ML SDV ONE (23:55)
[2019-07-26] MEDS ORDERED: fentaNYL 100 MCG/2 ML SDV ONE (23:55)
[2019-07-26] MEDS ORDERED: ceFAZolin 1 GM Vial ONE (23:55)
[2019-07-26] MEDS ORDERED: Lidocaine 2% with EPINEPHrine 1:200,000 20 ML SDV ONE (23:55)
[2019-07-26] MEDS ORDERED: Ketorolac 30 MG/ML SDV ONE (23:55)
[2019-07-26] MEDS ORDERED: Lactated Ringers 1,000 ML ONE (23:55)
[2019-07-26] MEDS ORDERED: Morphine PF 1 MG/ML Amp ONE (23:55)
[2019-07-26] MEDS ORDERED: Azithromycin 500 MG in Sodium Chloride 0.9% 250 ML IV ONE (23:55)
[2019-07-27] MEDS ORDERED: diphenhydrAMINE 50 MG/ML SDV IVPUSH PRN ×2 (00:03→03:14)
[2019-07-27] MEDS ORDERED: ePHEDrine 50 MG/ML SDV IVPUSH PRN ×2 (00:03→03:14)
[2019-07-27] MEDS ORDERED: Ondansetron 4 MG/2 ML SDV IVPUSH PRN ×2 (00:03→10:41)
[2019-07-27] MEDS ORDERED: HYDROmorphone 0.5 MG/0.5 ML Syringe IVPUSH PRN (00:03)
[2019-07-27] MEDS ORDERED: fentaNYL 100 MCG/2 ML SDV IVPUSH PRN (00:03)
--- NOTE | 2019-07-27 00:04 | PCM.PNLD ---
Labor Progress Note - VS & Meds Vital Signs: Last Vital Signs Temp 36.7 C 07/26/19 08:05 Pulse 76 07/26/19 08:05 Resp 16 07/26/19 08:05 BP 112/86 07/26/19 08:05 Pulse Ox 99 07/26/19 08:05 Active Medications: Current Medications Acetaminophen (Tylenol) 650 mg PO Q4H PRN PRN Reason: Pain (Mild 1-3) and fever Ephedrine Sulfate (Ephedrine Sulfate) 5 mg IVPUSH ASDIRECTED PRN PRN Reason: Hypotension Famotidine (Pepcid) 20 mg PO Q12H PRN PRN Reason: Heartburn Fentanyl (Sublimaze) 100 mcg EPIDUR Q3H PRN PRN Reason: Pain Last Admin: 07/26/19 20:08 Dose: 100 mcg Fentanyl/Bupivacaine HCl (Fentanyl/Bupivacaine/Ns 2 Mcg-0.125% 100 Ml) 100 ml EPIDUR ASDIRECTED HERMAN Last Admin: 07/26/19 20:09 Dose: 100 ml Lactated Ringer's (Ringers, Lactated) 1,000 mls @ 100 mls/hr IV ASDIRECTED HERMAN Last Admin: 07/26/19 23:53 Dose: 999 mls/hr Oxytocin/Lactated Ringer's (Pitocin In Lr 10 Units/1,000 Ml) 10 unit in 1,000 mls @ 12 mls/hr IV TITRATE HERMAN; Protocol Last Titration: 07/26/19 22:15 Dose: 14 munits/min, 84 mls/hr Oxytocin/Lactated Ringer's (Pitocin In Lr 10 Units/1,000 Ml) 10 unit in 1,000 mls @ 500 mls/hr IV .CONTINUOUS HERMAN Azithromycin 500 mg/ Sodium (Chloride) 250 mls @ 250 mls/hr IV ONETIME ONE Stop: 07/27/19 00:54 Cefazolin Sodium/Dextrose 2 gm (/ Premix) 50 mls @ 100 mls/hr IV ONETIME ONE Stop: 07/27/19 00:23 Ondansetron HCl (Zofran) 4 mg IVPUSH ONETIME PRN PRN Reason: Nausea/Vomiting Ondansetron HCl (Zofran) 4 mg IVPUSH Q4H PRN PRN Reason: Nausea/Vomiting Sodium Chloride (Saline Flush) 10 ml FLUSH ASDIRECTED PRN PRN Reason: Keep Vein Open Discontinued Medications Bupivacaine HCl (Marcaine 0.5%) Confirm Administered Dose 30 ml .ROUTE .STK-MED ONE Stop: 07/26/19 23:54 Citric Acid/Sodium Citrate (Bicitra Solution) 30 ml PO ONETIME ONE Stop: 07/26/19 23:48 Last Admin: 07/26/19 23:54 Dose: 30 ml Lidocaine HCl (Xylocaine 1%) 20 ml INJECT ONETIME ONE Stop: 07/26/19 08:06 Metoclopramide HCl (Reglan) 10 mg IVPUSH ONETIME ONE Stop: 07/26/19 23:47 Last Admin: 07/26/19 23:54 Dose: 10 mg - Uterine Contractions Uterine Monitoring Mode: External [place] Contraction Frequency (min): 3-4 Contraction Duration (sec): 45-60 Contraction Intensity: Moderate to Strong - Monitoring Monitor Mode: Doppler/Auscultation Heart Rate (FHR) Baseline: 140 Heart Rate (FHR) Variability: Minimal (0-5 bpm) Accelerations: Present, 15x15 Decelerations: Late, Variable, Recurrent (>50% x 20 min) Strip Review: Category II - Vaginal Exam Dilation (cm): 5 Effacement (Percent): 90 Station: -1 Cervical Position: Midposition Sterile Vaginal Exam Performed By: Kaylynn Schaffer - Labor Progress (Free Text) Labor Progress: Patient with minimal cervical progress over the course of 6 hours and having recurrent variable and late decelerations She has an epidural in place Patient may have some thinning of the cervical effacement over this time but minimal change Because of minimal change and recurrent late decelerations decision was made to proceed with section Patient reviewed risks and benefits of section and states understanding Plan for Ancef 2 g and azithromycin 500 mg IV for antibiotic prophylaxis Proceed with section I will continue to round on patient after section Arnoldo Loera MD 00:04 AM 07/27/2019
[2019-07-27] MEDS ORDERED: Phenylephrine 1 MG in Sodium Chloride 0.9% 10 ML IV SCH (00:15)
[2019-07-27] MEDS ORDERED: Lactated Ringers 1,000 ML ONE (00:20)
[2019-07-27] MEDS ORDERED: ePHEDrine Sulfate/0.9% NaCl/Pf 25 MG/5 ML SYRINGE IV ONE ×2 (01:01→01:59)
--- NOTE | 2019-07-27 01:52 | PCM.POSTAN ---
POST ANESTHESIA ASSESSMENT - MENTAL STATUS Mental Status: Alert - VITAL SIGNS Vital Signs: Last Vital Signs Temp 97.9 07/26/19138 Pulse 90 07/26/19138 Resp 16 07/26/19138 BP 100/50 07/26/19138 Pulse Ox 97 07/26/19138 - RESPIRATORY Respiratory Status: Respiratory Rate WNL, Airway Patent, O2 Saturation Stable, Supplemental Oxygen - CARDIOVASCULAR CV Status: Pulse Rate WNL, Blood Pressure Stable - GASTROINTESTINAL GI Status: No Symptoms - POST OP HYDRATION Hydration Status: Adequate & Stable
--- NOTE | 2019-07-27 02:07 | PCM.OPNOTE ---
- General Post-Op/Procedure Note Date of Surgery/Procedure: 07/27/19 Operative Procedure(s): Repeat section due to failed trial of labor after section with arrest of dilation at 5 cm and nonreassuring heart tones Findings: Live female infant delivered with vacuum assistance in vertex presentation with weight of 3300 g (7 pounds 4.4 ounces (. Apgars of 9 and 9. Grossly normal-appearing uterus, fallopian tubes and ovaries bilaterally. Pre Op Diagnosis: Failed trial of labor after section with arrest of dilation at 5 cm and nonreassuring heart tones Post-Op Diagnosis: Same Anesthesia Technique: Epidural Primary Surgeon: Arnoldo Loera Anesthesia Provider: Mony Fregoso Bench Machine Operator: Kaylynn Schaffer Reason Bench Machine Operator Was Necessary: Patient safety and reduction of morbidity and mortality Role of Bench Machine Operator: Retraction for visualization Pathology: None Fluid Replacement, Intraop: 1,600 Output, Urine Amount: 100 EBL in mLs: 1,500 Complications: Vacuum assistance during delivery and hemorrhage with EBL of 1500 mL Condition: Good Free Text/Narrative:: Intake & Output 07/26/19 07/26/19 07/27/19 14:59 22:59 06:59 Intake Total 120 680 Balance 120 680 Length of procedure: 66 minutes Procedure in Detail: The patient was seen on labor and delivery in LDR room #1 and the risks, benefits and complications were discussed with the patient. Discussed with patient that due to the intolerance of labor with recurrent late and variable decelerations as well as arrest of dilation at 5 cm it was felt that she would not be able to make full progression to attempt for a vaginal delivery after section. Patient in agreement with this plan. The patient desired to proceed with section and appropriate consents were reviewed. The patient was taken to operating room #1. A Time Out was held and the patient was identified using 2 identifiers and the procedure was confirmed. The patient was given additional dosing through the epidural anesthesia and was placed in dorsal supine position with leftward tilt. She was given 2 g Ancef and 500 mg of azithromycin for antibiotic prophylaxis. The patient was prepped and draped in the usual sterile manner. The abdominal skin was tested and the epidural anesthesia was found to be adequate. The skin was injected with 0.5% marcaine for local anesthesia. A Pfannenstiel skin incision was made and carried down through the subcutaneous tissue to the fascia with the scapel. The fascia was nicked in the midline using a scalpel and the fascial incision was extended transversely with Huber scissors. The superior aspect of the fascia was grasped with Braxton clamps and tented upwards. The fascia was from the underlying rectus muscle bluntly and sharply with Huber scissors. Attention was then turned to the inferior aspect of the fascia and was grasped using Braxton clamps and tented upwards. The underlying rectus muscle was dissected off bluntly and sharply with Huber scissors. The peritoneum was identified and entered bluntly. The utero-vesical peritoneal reflection was identified and the peritoneum was incised with [place] scissors and transversely extended. The bladder blade was inserted and the lower uterine segment was identified. A low transverse uterine incision was made sharply with a scalpel and extended laterally bluntly. The infant's head was brought to the uterine incision, the bladder blade was removed and the infant was attempted to be delivered but there was difficulty in delivery of the head. Decision was made for vacuum assistance and a carrillo type Kiwi vacuum extractor was placed on the 's head at the flexion point the vacuum was applied to approximately 550 mmHg. With gentle traction and fundal pressure the head was able to be delivered with 1 pull. There were no pop offs. The vacuum was applied for approximately 20 seconds. On 07/27/2019 a live female was delivered with vacuum assistance in vertex position at 00:37, wt of 3300 grams, 7 pounds and 4.4 ounces. APGARS were 9 & 9. The nose and mouth were suctioned with bulb suction, the cord was doubly clamped and cut and was transferred to the awaiting acute specialist, Dr. Givens. The placenta was removed intact and appeared normal with a three vessel cord. The uterus was exteriorized and the uterine cavity was cleaned using lap sponges. The hysterotomy was closed with a running locked suture of 0-Vicryl. During the repair of the hysterotomy there is noted to be laceration of 1 of the uterine vessels on the left side and a [id number] suture was placed on the proximal and distal ends of the vessel with hemostasis noted. A second suture of 0-Vicryl was used to imbricate the hysterotomy. The hysterotomy was inspected and noted to have additional bleeding from a small area in the midline of the hysterotomy and a gcnrji-pn-nkovf suture of 0 Vicryl was placed with hemostasis noted. The uterus, tubes and ovaries appeared overall normal. The uterus was then returned into the abdominal cavity. The hysterotomy was noted to have one area to the right of the midline of the uterine incision that had some additional bleeding and an additional wstqyp-jq-shwlo suture with 0 Vicryl was placed for hemostasis. At this time the uterine incision was noted to be hemostatic inside the abdominal cavity. The fascia was noted to be hemostatic and the fascia was then reapproximated with running sutures of 1 PDS. The subcutaneous fat was reapproximated using 0 Vicryl. The skin was reapproximated using 4-0 Monocryl and Steri-strips were applied over the incision. Instrument, sponge, and needle counts were correct prior to the abdominal closure and at the conclusion of the case.
[2019-07-27] MEDS ORDERED: Lactated Ringers 1,000 ML IV SCH (03:14)
[2019-07-27] MEDS ORDERED: Magnesium Hydroxide 400 MG/5 ML Susp 30 ML Cup PO PRN (03:14)
[2019-07-27] MEDS ORDERED: Acetaminophen/oxyCODONE 325-5 MG Tab PO PRN ×2 (03:14)
[2019-07-27] MEDS ORDERED: Naloxone 0.4 MG/ML SDV IVPUSH PRN (03:14)
[2019-07-27] MEDS ORDERED: Oxytocin/Lactated Ringers 10 UNIT/1,000 ML BAG IV SCH (03:14)
[2019-07-27] MEDS ORDERED: Ondansetron 4 MG Tab.DIS PO PRN (03:14)
[2019-07-27] MEDS: Ketorolac 30 MG/ML SDV IVPUSH SCH ×3 (06:54→19:57)
--- NOTE | 2019-07-27 11:30 | PCM.SN ---
- Free Text/Narrative Note: Post Operative Progress Note POD #0 Subjective: Doing well overall. Has not ambulated since delivery. Lochia minimal. Retana draining clear urine. Reports nausea throughout the evening with 2 episodes of emesis. She has been taking small sips of liquid without significant problems.. Pain controlled with Toradol. Breast-feeding with bottle supplementation with minimal difficulty. Objective: Vitals: Vital Signs - 24 hr 07/26/19 07/26/19 07/26/19 12:01 12:31 13:00 Temperature Temperature [ Temporal] Pulse, 85 107 H 91 Peripheral Pulse, Peripheral [ Pulse Oximetry] Respiratory Rate Blood Pressure 118/69 103/68 105/74 Blood Pressure [Upper Arm] O2 Sat by Pulse Oximetry O2 Sat by Pulse Oximetry [ Nasal Cannula] 07/26/19 07/26/19 07/26/19 13:31 14:05 14:30 Temperature Temperature [ Temporal] Pulse, 86 80 74 Peripheral Pulse, Peripheral [ Pulse Oximetry] Respiratory Rate Blood Pressure 107/61 Blood Pressure [Upper Arm] O2 Sat by Pulse Oximetry O2 Sat by Pulse Oximetry [ Nasal Cannula] 07/26/19 07/26/19 07/26/19 15:00 15:30 16:01 Temperature Temperature [ Temporal] Pulse, 112 H 91 88 Peripheral Pulse, Peripheral [ Pulse Oximetry] Respiratory Rate Blood Pressure 111/65 Blood Pressure [Upper Arm] O2 Sat by Pulse Oximetry O2 Sat by Pulse Oximetry [ Nasal Cannula] 07/26/19 07/26/19 07/26/19 16:30 17:01 17:34 Temperature Temperature [ Temporal] Pulse, 79 105 H 86 Peripheral Pulse, Peripheral [ Pulse Oximetry] Respiratory Rate Blood Pressure 115/52 L 110/74 Blood Pressure [Upper Arm] O2 Sat by Pulse Oximetry O2 Sat by Pulse Oximetry [ Nasal Cannula] 07/26/19 07/26/19 07/26/19 18:04 18:34 19:04 Temperature Temperature [ Temporal] Pulse, 87 89 96 Peripheral Pulse, Peripheral [ Pulse Oximetry] Respiratory Rate Blood Pressure Blood Pressure [Upper Arm] O2 Sat by Pulse Oximetry O2 Sat by Pulse Oximetry [ Nasal Cannula] 07/26/19 07/26/19 07/26/19 19:33 20:03 20:30 Temperature Temperature [ Temporal] Pulse, 115 H 93 107 H Peripheral Pulse, Peripheral [ Pulse Oximetry] Respiratory Rate Blood Pressure Blood Pressure [Upper Arm] O2 Sat by Pulse 100 Oximetry O2 Sat by Pulse Oximetry [ Nasal Cannula] 07/26/19 07/26/19 07/26/19 21:01 21:30 22:00 Temperature Temperature [ Temporal] Pulse, 115 H 91 114 H Peripheral Pulse, Peripheral [ Pulse Oximetry] Respiratory Rate Blood Pressure 102/76 Blood Pressure [Upper Arm] O2 Sat by Pulse 99 98 Oximetry O2 Sat by Pulse Oximetry [ Nasal Cannula] 07/26/19 07/26/19 07/26/19 22:31 23:01 23:31 Temperature Temperature [ Temporal] Pulse, 117 H 101 H 108 H Peripheral Pulse, Peripheral [ Pulse Oximetry] Respiratory Rate Blood Pressure 103/66 120/61 112/78 Blood Pressure [Upper Arm] O2 Sat by Pulse Oximetry O2 Sat by Pulse Oximetry [ Nasal Cannula] 07/27/19 07/27/19 07/27/19 01:39 01:45 01:50 Temperature Temperature [ 36.6 C Temporal] Pulse, Peripheral Pulse, 90 94 93 Peripheral [ Pulse Oximetry] Respiratory 15 15 15 Rate Blood Pressure Blood Pressure 78/40 L 91/41 L 100/50 L [Upper Arm] O2 Sat by Pulse 97 99 99 Oximetry O2 Sat by Pulse 99 Oximetry [ Nasal Cannula] 07/27/19 07/27/19 07/27/19 01:55 02:00 02:05 Temperature Temperature [ 36.6 C Temporal] Pulse, Peripheral Pulse, 91 93 Peripheral [ Pulse Oximetry] Respiratory 14 16 Rate Blood Pressure Blood Pressure 98/54 L 92/45 L 83/53 L [Upper Arm] O2 Sat by Pulse 99 99 Oximetry O2 Sat by Pulse 99 Oximetry [ Nasal Cannula] 07/27/19 07/27/19 07/27/19 02:09 02:10 02:13 Temperature Temperature [ 36.7 C Temporal] Pulse, Peripheral Pulse, 72 81 Peripheral [ Pulse Oximetry] Respiratory 16 17 Rate Blood Pressure Blood Pressure 123/68 110/62 [Upper Arm] O2 Sat by Pulse 100 100 Oximetry O2 Sat by Pulse 100 Oximetry [ Nasal Cannula] 07/27/19 07/27/19 07/27/19 02:15 02:20 02:25 Temperature Temperature [ 36.6 C 36.6 C Temporal] Pulse, Peripheral Pulse, 89 91 89 Peripheral [ Pulse Oximetry] Respiratory 15 15 15 Rate Blood Pressure Blood Pressure 89/62 L 107/66 108/64 [Upper Arm] O2 Sat by Pulse 95 96 95 Oximetry O2 Sat by Pulse Oximetry [ Nasal Cannula] 07/27/19 07/27/19 07/27/19 02:36 02:46 03:01 Temperature 37.4 C Temperature [ Temporal] Pulse, 104 H 98 95 Peripheral Pulse, Peripheral [ Pulse Oximetry] Respiratory 18 Rate Blood Pressure 117/45 L 111/58 L 113/67 Blood Pressure [Upper Arm] O2 Sat by Pulse 96 99 99 Oximetry O2 Sat by Pulse Oximetry [ Nasal Cannula] 07/27/19 07/27/19 07/27/19 03:31 03:32 04:02 Temperature 37.0 C Temperature [ Temporal] Pulse, 96 92 110 H Peripheral Pulse, Peripheral [ Pulse Oximetry] Respiratory 18 16 Rate Blood Pressure 107/56 L 97/63 Blood Pressure [Upper Arm] O2 Sat by Pulse 99 99 97 Oximetry O2 Sat by Pulse Oximetry [ Nasal Cannula] 07/27/19 07/27/19 07/27/19 04:04 04:32 04:36 Temperature Temperature [ Temporal] Pulse, 105 H 102 H 92 Peripheral Pulse, Peripheral [ Pulse Oximetry] Respiratory Rate Blood Pressure 111/48 L Blood Pressure [Upper Arm] O2 Sat by Pulse 95 94 L 98 Oximetry O2 Sat by Pulse Oximetry [ Nasal Cannula] 07/27/19 07/27/19 07/27/19 04:37 06:00 06:51 Temperature Temperature [ Temporal] Pulse, 86 89 Peripheral Pulse, Peripheral [ Pulse Oximetry] Respiratory 16 16 17 Rate Blood Pressure Blood Pressure [Upper Arm] O2 Sat by Pulse 96 98 Oximetry O2 Sat by Pulse Oximetry [ Nasal Cannula] 07/27/19 07/27/19 07:41 09:00 Temperature 36.9 C Temperature [ Temporal] Pulse, 106 H Peripheral Pulse, Peripheral [ Pulse Oximetry] Respiratory 16 16 Rate Blood Pressure 112/65 Blood Pressure [Upper Arm] O2 Sat by Pulse 98 96 Oximetry O2 Sat by Pulse Oximetry [ Nasal Cannula] Physical Exam General: Alert and oriented, no acute distress Lungs: Clear to auscultation bilaterally Heart: Regular rate and rhythm Abdomen: Soft, minimal appropriate tenderness, non-distended, fundus midline, nontender and at the umbilicus Incision: Clean, dry and intact, no erythema, bleeding or drainage with bandage in place with small amount of blood on the bandage in the midline. Extremities: Trace edema in bilateral lower extremities to mid shins Labs: Laboratory Tests 07/26/19 07/26/19 07/26/19 Range/Units 08:40 08:40 08:40 WBC 8.99 (3.98-10.04) K/mm3 RBC 4.25 (3.98-5.22) M/mm3 Hgb 11.6 (11.2-15.7) gm/dl Hct 36.3 (34.1-44.9) % MCV 85.4 (79.4-94.8) fl MCH 27.3 (25.6-32.2) pg MCHC 32.0 L (32.2-35.5) g/dl RDW Std Deviation 55.0 H (36.4-46.3) fL Plt Count 251 (182-369) K/mm3 MPV 10.1 (9.4-12.3) fl Neut % (Auto) (34.0-71.1) % Lymph % (Auto) (19.3-51.7) % [place] % (Auto) (4.7-12.5) % Eos % (Auto) (0.7-5.8) Baso % (Auto) (0.1-1.2) % Neut # (Auto) (1.56-6.13) K/mm3 Lymph # (Auto) (1.18-3.74) K/mm3 [place] # (Auto) (0.24-0.36) K/mm3 Eos # (Auto) (0.04-0.36) K/mm3 Baso # (Auto) (0.01-0.08) K/mm3 RPR Non-reactive (NONREACTIVE) Blood Type O POSITIVE Gel Antibody Screen Negative 07/27/19 Range/Units 07:38 WBC 14.92 H (3.98-10.04) K/mm3 RBC 3.31 L (3.98-5.22) M/mm3 Hgb 9.0 L D (11.2-15.7) gm/dl Hct 28.6 L (34.1-44.9) % MCV 86.4 (79.4-94.8) fl MCH 27.2 (25.6-32.2) pg MCHC 31.5 L (32.2-35.5) g/dl RDW Std Deviation 54.2 H (36.4-46.3) fL Plt Count 204 (182-369) K/mm3 MPV 9.1 L (9.4-12.3) fl Neut % (Auto) 77.9 H (34.0-71.1) % Lymph % (Auto) 15.9 L (19.3-51.7) % [place] % (Auto) 5.9 (4.7-12.5) % Eos % (Auto) 0 L (0.7-5.8) Baso % (Auto) 0.1 (0.1-1.2) % Neut # (Auto) 11.63 H (1.56-6.13) K/mm3 Lymph # (Auto) 2.37 (1.18-3.74) K/mm3 [place] # (Auto) 0.88 H (0.24-0.36) K/mm3 Eos # (Auto) 0.00 L (0.04-0.36) K/mm3 Baso # (Auto) 0.01 (0.01-0.08) K/mm3 RPR (NONREACTIVE) Blood Type Gel Antibody Screen ASSESSMENT: 33-year-old female -0-2-2 s/p repeat section POD #0 for failed trial of labor after section with arrest of dilation at 5 cm and nonreassuring heart tones, complicated by hemorrhage with EBL 1500 mL PLAN: Doing well overall Patient with nausea and vomiting throughout the evening. We will continue to use medications such as Zofran to help with this Breast-feeding with bottle supplementation with minimal difficulty. Assist as needed Incision healing well. Continue to keep clean and dry. Lochia minimal. Continue to monitor for appropriate lochia. Continue routine post-operative care Patient's hemoglobin this morning was 9.0 which is down from 11.6 on admission. Patient is not having any symptoms of acute blood loss anemia at this time. We will continue to monitor throughout the day and afternoon and recheck her blood count in the afternoon if needed. Plan will be to recheck blood count in the morning of postoperative day #1. Anticipate discharge home on postoperative day #1 in the afternoon or on postoperative day #2 Arnoldo Loera MD 11:29 AM 07/27/2019
[2019-07-27] MEDS: Docusate Sodium 100 MG Cap PO SCH ×2 (11:42→20:03)
[2019-07-27] MEDS: Prenatal Multivitamin with Calcium/Folic Acid/Iron Tab PO SCH (11:42)
--- NOTE | 2019-07-27 15:38 | PCM48HPAN ---
Post Anesthesia Note - EVALUATION WITHIN 48HRS OF ANESTHETIC Vital Signs in Normal Range: Yes Patient Participated in Evaluation: Yes Respiratory Function Stable: Yes Airway Patent: Yes Cardiovascular Function Stable: Yes Hydration Status Stable: Yes Pain Control Satisfactory: Yes Nausea and Vomiting Control Satisfactory: Yes Mental Status Recovered: Yes Vital Signs: Last Vital Signs Temp 37.1 C 07/27/19 12:27 Pulse 100 07/27/19 12:27 Resp 16 07/27/19 14:00 BP 111/52 L 07/27/19 12:27 Pulse Ox 97 07/27/19 14:00
[2019-07-28] MEDS: Ibuprofen 600 MG Tab PO PRN ×3 (02:51→17:43)
--- NOTE | 2019-07-28 10:21 | PCM.SN ---
- Free Text/Narrative Note: Post Operative Progress Note POD #1 Subjective: Doing well overall. Lochia minimal. Voiding without difficulty. Reports passing flatus but has not had a bowel movement at this time. Tolerating regular diet without any nausea or vomiting since yesterday afternoon. Pain minimal and able to be controlled with ibuprofen only. Breast-feeding with bottle supplementation with minimal difficulty. She denies any lightheadedness , dizziness or shortness of breath with ambulation. She reports that ambulation has been going very well for her. Objective: Vitals: Vital Signs - 24 hr 07/27/19 07/27/19 07/27/19 11:00 12:27 12:57 Temperature 37.1 C Pulse, 100 103 H Peripheral Respiratory 17 15 Rate Blood Pressure 111/52 L O2 Sat by Pulse 99 98 96 Oximetry 07/27/19 07/27/19 07/27/19 13:00 14:00 15:00 Temperature Pulse, Peripheral Respiratory 18 16 16 Rate Blood Pressure O2 Sat by Pulse 97 97 99 Oximetry 07/27/19 07/27/19 07/27/19 16:15 16:46 16:55 Temperature 37.2 C Pulse, 100 114 H Peripheral Respiratory 16 16 Rate Blood Pressure 108/57 L O2 Sat by Pulse 99 99 99 Oximetry 07/27/19 07/27/19 07/27/19 18:00 18:53 20:01 Temperature 37.1 C Pulse, 94 Peripheral Respiratory 15 17 14 Rate Blood Pressure 91/62 O2 Sat by Pulse 96 95 98 Oximetry 07/27/19 07/27/19 07/27/19 20:32 21:00 22:00 Temperature Pulse, 107 H Peripheral Respiratory 14 15 Rate Blood Pressure O2 Sat by Pulse 96 99 99 Oximetry 07/27/19 07/28/19 23:00 02:50 Temperature 36.8 C Pulse, 89 Peripheral Respiratory 15 15 Rate Blood Pressure 111/90 O2 Sat by Pulse 100 93 L Oximetry Physical Exam General: Alert and oriented, no acute distress Lungs: Clear to auscultation bilaterally Heart: Regular rate and rhythm Abdomen: Soft, minimal appropriate tenderness, non-distended, fundus midline, nontender and at the umbilicus Incision: Clean, dry and intact, no erythema, bleeding or drainage with Steri- Strips in place Extremities: No edema in bilateral lower extremities Labs: Laboratory Results - last 24 hr 03/25/20 Range/Units 05:19 WBC 8.85 (3.98-10.04) K/mm3 RBC 2.78 L (3.98-5.22) M/mm3 Hgb 7.5 L D (11.2-15.7) gm/dl Hct 24.5 L (34.1-44.9) % MCV 88.1 (79.4-94.8) fl MCH 27.0 (25.6-32.2) pg MCHC 30.6 L (32.2-35.5) g/dl RDW Std Deviation 56.5 H (36.4-46.3) fL Plt Count 184 (182-369) K/mm3 MPV 9.8 (9.4-12.3) fl Neut % (Auto) 65.9 (34.0-71.1) % Lymph % (Auto) 24.9 (19.3-51.7) % [place] % (Auto) 7.7 (4.7-12.5) % Eos % (Auto) 1.1 (0.7-5.8) Baso % (Auto) 0.1 (0.1-1.2) % Neut # (Auto) 5.83 (1.56-6.13) K/mm3 Lymph # (Auto) 2.20 (1.18-3.74) K/mm3 [place] # (Auto) 0.68 H (0.24-0.36) K/mm3 Eos # (Auto) 0.10 (0.04-0.36) K/mm3 Baso # (Auto) 0.01 (0.01-0.08) K/mm3 Manual Slide Review Normal smear ASSESSMENT: 33-year-old female -0-2-2 s/p repeat section POD #1 for failed trial of labor after section with arrest of dilation at 5 cm and nonreassuring heart tones, complicated by hemorrhage with EBL 1500 mL PLAN: Doing well overall Breast-feeding with bottle supplementation with minimal difficulty. Assist as needed Incision healing well. Continue to keep clean and dry. Lochia minimal. Continue to monitor for appropriate lochia. Continue routine post-operative care Patient with minimal pain today and has only used ibuprofen and not needed any Percocet. We will add Tylenol to her pain regimen if she has minimal amount of pain and does not want anything stronger than Tylenol and ibuprofen to treat her pain. Patient's hemoglobin this morning was 7.5 which is down from 9.0 yesterday. Patient is not having any symptoms of acute blood loss anemia at this time. We will continue to monitor throughout the day and afternoon. Possible discharge home this afternoon if she continues to do well without any symptoms of acute blood loss anemia and infant is discharged. If not discharged home this afternoon we will plan to discharge tomorrow. Arnoldo Loera MD 10:15 AM 07/28/2019
[2019-07-28] MEDS: Docusate Sodium 100 MG Cap PO SCH (12:32)
[2019-07-28] MEDS: Prenatal Multivitamin with Calcium/Folic Acid/Iron Tab PO SCH (12:32)
[2019-07-28] MEDS ORDERED: Acetaminophen 325 MG Tab PO PRN (16:16)
[2019-07-28 16:30] VITALS: BP 115/56; PULSE 99
--- NOTE | 2019-07-28 17:18 | PCM.DCSUM1 ---
Discharge Summary - Hospital Course Free Text/Narrative:: Procedure in Detail: The patient was seen on labor and delivery in LDR room #1 and the risks, benefits and complications were discussed with the patient. Discussed with patient that due to the intolerance of labor with recurrent late and variable decelerations as well as arrest of dilation at 5 cm it was felt that she would not be able to make full progression to attempt for a vaginal delivery after section. Patient in agreement with this plan. The patient desired to proceed with section and appropriate consents were reviewed. The patient was taken to operating room #1. A Time Out was held and the patient was identified using 2 identifiers and the procedure was confirmed. The patient was given additional dosing through the epidural anesthesia and was placed in dorsal supine position with leftward tilt. She was given 2 g Ancef and 500 mg of azithromycin for antibiotic prophylaxis. The patient was prepped and draped in the usual sterile manner. The abdominal skin was tested and the epidural anesthesia was found to be adequate. The skin was injected with 0.5% marcaine for local anesthesia. A Pfannenstiel skin incision was made and carried down through the subcutaneous tissue to the fascia with the scapel. The fascia was nicked in the midline using a scalpel and the fascial incision was extended transversely with Huber scissors. The superior aspect of the fascia was grasped with Braxton clamps and tented upwards. The fascia was from the underlying rectus muscle bluntly and sharply with Huber scissors. Attention was then turned to the inferior aspect of the fascia and was grasped using Braxton clamps and tented upwards. The underlying rectus muscle was dissected off bluntly and sharply with Huber scissors. The peritoneum was identified and entered bluntly. The utero-vesical peritoneal reflection was identified and the peritoneum was incised with Metzenabaum scissors and transversely extended. The bladder blade was inserted and the lower uterine segment was identified. A low transverse uterine incision was made sharply with a scalpel and extended laterally bluntly. The infant's head was brought to the uterine incision, the bladder blade was removed and the infant was attempted to be delivered but there was difficulty in delivery of the head. Decision was made for vacuum assistance and a carrillo type Kiwi vacuum extractor was placed on the 's head at the flexion point the vacuum was applied to approximately 550 mmHg. With gentle traction and fundal pressure the head was able to be delivered with 1 pull. There were no pop offs. The vacuum was applied for approximately 20 seconds. On 07/27/2019 a live female was delivered with vacuum assistance in vertex position at 00:37, wt of 3300 grams, 7 pounds and 4.4 ounces. APGARS were 9 & 9. The nose and mouth were suctioned with bulb suction, the cord was doubly clamped and cut and was transferred to the awaiting heavy equipment diesel mechanic, Dr. Givens. The placenta was removed intact and appeared normal with a three vessel cord. The uterus was exteriorized and the uterine cavity was cleaned using lap sponges. The hysterotomy was closed with a running locked suture of 0-Vicryl. During the repair of the hysterotomy there is noted to be laceration of 1 of the uterine vessels on the left side and a sgfusp-oy-crhzy suture was placed on the proximal and distal ends of the vessel with hemostasis noted. A second suture of 0-Vicryl was used to imbricate the hysterotomy. The hysterotomy was inspected and noted to have additional bleeding from a small area in the midline of the hysterotomy and a dexmpl-fl-pnurb suture of 0 Vicryl was placed with hemostasis noted. The uterus, tubes and ovaries appeared overall normal. The uterus was then returned into the abdominal cavity. The hysterotomy was noted to have one area to the right of the midline of the uterine incision that had some additional bleeding and an additional nubgnj-xn-yofjv suture with 0 Vicryl was placed for hemostasis. At this time the uterine incision was noted to be hemostatic inside the abdominal cavity. The fascia was noted to be hemostatic and the fascia was then reapproximated with running sutures of 1 PDS. The subcutaneous fat was reapproximated using 0 Vicryl. The skin was reapproximated using 4-0 Monocryl and Steri-strips were applied over the incision. Instrument, sponge, and needle counts were correct prior to the abdominal closure and at the conclusion of the case. HPI Initial Comments: Procedure in Detail: The patient was seen on labor and delivery in LDR room #1 and the risks, benefits and complications were discussed with the patient. Discussed with patient that due to the intolerance of labor with recurrent late and variable decelerations as well as arrest of dilation at 5 cm it was felt that she would not be able to make full progression to attempt for a vaginal delivery after section. Patient in agreement with this plan. The patient desired to proceed with section and appropriate consents were reviewed. The patient was taken to operating room #1. A Time Out was held and the patient was identified using 2 identifiers and the procedure was confirmed. The patient was given additional dosing through the epidural anesthesia and was placed in dorsal supine position with leftward tilt. She was given 2 g Ancef and 500 mg of azithromycin for antibiotic prophylaxis. The patient was prepped and draped in the usual sterile manner. The abdominal skin was tested and the epidural anesthesia was found to be adequate. The skin was injected with 0.5% marcaine for local anesthesia. A Pfannenstiel skin incision was made and carried down through the subcutaneous tissue to the fascia with the scapel. The fascia was nicked in the midline using a scalpel and the fascial incision was extended transversely with Huber scissors. The superior aspect of the fascia was grasped with Braxton clamps and tented upwards. The fascia was from the underlying rectus muscle bluntly and sharply with Huber scissors. Attention was then turned to the inferior aspect of the fascia and was grasped using Braxton clamps and tented upwards. The underlying rectus muscle was dissected off bluntly and sharply with Huber scissors. The peritoneum was identified and entered bluntly. The utero-vesical peritoneal reflection was identified and the peritoneum was incised with Metzenabaum scissors and transversely extended. The bladder blade was inserted and the lower uterine segment was identified. A low transverse uterine incision was made sharply with a scalpel and extended laterally bluntly. The infant's head was brought to the uterine incision, the bladder blade was removed and the infant was attempted to be delivered but there was difficulty in delivery of the head. Decision was made for vacuum assistance and a carrillo type Kiwi vacuum extractor was placed on the 's head at the flexion point the vacuum was applied to approximately 550 mmHg. With gentle traction and fundal pressure the head was able to be delivered with 1 pull. There were no pop offs. The vacuum was applied for approximately 20 seconds. On 07/27/2019 a live female infant was delivered with vacuum assistance in vertex position at 00:37, wt of 3300 grams, 7 pounds and 4.4 ounces. APGARS were 9 & 9. The nose and mouth were suctioned with bulb suction, the cord was doubly clamped and cut and was transferred to the awaiting heavy equipment diesel mechanic, Dr. Givens. The placenta was removed intact and appeared normal with a three vessel cord. The uterus was exteriorized and the uterine cavity was cleaned using lap sponges. The hysterotomy was closed with a running locked suture of 0-Vicryl. During the repair of the hysterotomy there is noted to be laceration of 1 of the uterine vessels on the left side and a hvlrzg-zb-mudzc suture was placed on the proximal and distal ends of the vessel with hemostasis noted. A second suture of 0-Vicryl was used to imbricate the hysterotomy. The hysterotomy was inspected and noted to have additional bleeding from a small area in the midline of the hysterotomy and a mibxpb-sg-pmskh suture of 0 Vicryl was placed with hemostasis noted. The uterus, tubes and ovaries appeared overall normal. The uterus was then returned into the abdominal cavity. The hysterotomy was noted to have one area to the right of the midline of the uterine incision that had some additional bleeding and an additional pzraga-vz-hexjb suture with 0 Vicryl was placed for hemostasis. At this time the uterine incision was noted to be hemostatic inside the abdominal cavity. The fascia was noted to be hemostatic and the fascia was then reapproximated with running sutures of 1 PDS. The subcutaneous fat was reapproximated using 0 Vicryl. The skin was reapproximated using 4-0 Monocryl and Steri-strips were applied over the incision. Instrument, sponge, and needle counts were correct prior to the abdominal closure and at the conclusion of the case. Brief History: Procedure in Detail: The patient was seen on labor and delivery in LDR room #1 and the risks, benefits and complications were discussed with the patient. Discussed with patient that due to the intolerance of labor with recurrent late and variable decelerations as well as arrest of dilation at 5 cm it was felt that she would not be able to make full progression to attempt for a vaginal delivery after section. Patient in agreement with this plan. The patient desired to proceed with section and appropriate consents were reviewed. The patient was taken to operating room #1. A Time Out was held and the patient was identified using 2 identifiers and the procedure was confirmed. The patient was given additional dosing through the epidural anesthesia and was placed in dorsal supine position with leftward tilt. She was given 2 g Ancef and 500 mg of azithromycin for antibiotic prophylaxis. The patient was prepped and draped in the usual sterile manner. The abdominal skin was tested and the epidural anesthesia was found to be adequate. The skin was injected with 0.5% marcaine for local anesthesia. A Pfannenstiel skin incision was made and carried down through the subcutaneous tissue to the fascia with the scapel. The fascia was nicked in the midline using a scalpel and the fascial incision was extended transversely with Huber scissors. The superior aspect of the fascia was grasped with Braxton clamps and tented upwards. The fascia was from the underlying rectus muscle bluntly and sharply with Huber scissors. Attention was then turned to the inferior aspect of the fascia and was grasped using Braxton clamps and tented upwards. The underlying rectus muscle was dissected off bluntly and sharply with Huber scissors. The peritoneum was identified and entered bluntly. The utero-vesical peritoneal reflection was identified and the peritoneum was incised with Metzenabaum scissors and transversely extended. The bladder blade was inserted and the lower uterine segment was identified. A low transverse uterine incision was made sharply with a scalpel and extended laterally bluntly. The 's head was brought to the uterine incision, the bladder blade was removed and the was attempted to be delivered but there was difficulty in delivery of the head. Decision was made for vacuum assistance and a carrillo type Kiwi vacuum extractor was placed on the 's head at the flexion point the vacuum was applied to approximately 550 mmHg. With gentle traction and fundal pressure the head was able to be delivered with 1 pull. There were no pop offs. The vacuum was applied for approximately 20 seconds. On 07/27/2019 a live female infant was delivered with vacuum assistance in vertex position at 00:37, wt of 3300 grams, 7 pounds and 4.4 ounces. APGARS were 9 & 9. The nose and mouth were suctioned with bulb suction , the cord was doubly clamped and cut and infant was transferred to the awaiting heavy equipment diesel mechanic, Dr. Givens. The placenta was removed intact and appeared normal with a three vessel cord. The uterus was exteriorized and the uterine cavity was cleaned using lap sponges. The hysterotomy was closed with a running locked suture of 0-Vicryl. During the repair of the hysterotomy there is noted to be laceration of 1 of the uterine vessels on the left side and a zkdsky-xo-usrmo suture was placed on the proximal and distal ends of the vessel with hemostasis noted. A second suture of 0-Vicryl was used to imbricate the hysterotomy. The hysterotomy was inspected and noted to have additional bleeding from a small area in the midline of the hysterotomy and a ehagfs-af-dpyzc suture of 0 Vicryl was placed with hemostasis noted. The uterus , tubes and ovaries appeared overall normal. The uterus was then returned into the abdominal cavity. The hysterotomy was noted to have one area to the right of the midline of the uterine incision that had some additional bleeding and an additional lvyxrb-fi-lpcxy suture with 0 Vicryl was placed for hemostasis. At this time the uterine incision was noted to be hemostatic inside the abdominal cavity. The fascia was noted to be hemostatic and the fascia was then reapproximated with running sutures of 1 PDS. The subcutaneous fat was reapproximated using 0 Vicryl. The skin was reapproximated using 4-0 Monocryl and Steri-strips were applied over the incision. Instrument, sponge, and needle counts were correct prior to the abdominal closure and at the conclusion of the case. Diagnosis: Stroke: No - Discharge Data Discharge Date: 07/28/19 Discharge Disposition: Home, Self-Care 01 Condition: Good - Referral to Home Health Primary Care Physician: Kaylynn Schaffer MD - Discharge Diagnosis/Problem(s) (1) delivery delivered SNOMED Code(s): 663197627 ICD Code: O82 - ENCOUNTER FOR DELIVERY WITHOUT INDICATION Status: Acute Current Visit: Yes (2) Hemorrhage, immediate SNOMED Code(s): 84508089 ICD Code: O72.1 - OTHER IMMEDIATE HEMORRHAGE Status: Acute Current Visit: Yes (3) Arrest of dilation, delivered, current hospitalization SNOMED Code(s): 61643422, 709139497 ICD Code: O62.1 - SECONDARY UTERINE INERTIA Status: Acute Current Visit: Yes (4) Non-reassuring heart rate or rhythm affecting management of mother SNOMED Code(s): 36153972, 542309042, 721246714 ICD Code: O36.8390 - MATERN CARE FOR ABNLT FETL HRT RATE OR RHYM, UNSP TRI, UNSP Status: Acute Current Visit: Yes (5) 39 weeks gestation of SNOMED Code(s): 17631644 ICD Code: Z3A.39 - 39 WEEKS GESTATION OF Status: Acute Current Visit: Yes (6) Obesity affecting in third trimester SNOMED Code(s): 559034713713, 250456680464 ICD Code: O99.213 - OBESITY COMPLICATING , THIRD TRIMESTER Status : Acute Current Visit: Yes - Patient Summary/Data Operative Procedure(s) Performed: Repeat section due to failed trial of labor after section with arrest of dilation at 5 cm and nonreassuring heart tones Complications: hemorrhage of 1500 mL during section delivery. Consults: None Hospital Course: Jemima Rasmussen was admitted for induction of labor for trial of labor after section. Her cervix on admission was 1 cm dilated. She was GBS negative. She was started on Pitocin for induction of labor. She had a transcervical Retana bulb placed for mechanical dilation of the cervix. She had artificial rupture membranes with return of clear fluid. She was given an epidural for anesthesia. She was noted to have arrest of dilation at 5 cm despite ongoing use of Pitocin for augmentation of labor and was also noted to have recurrent late and variable decelerations when using the Pitocin for augmentation. Decision was made that due to the arrest of dilation as well as nonreassuring heart tones that she should proceed to section. She was taken back to the OR and given additional dosing through her epidural for anesthesia. She was given Ancef 2 g and azithromycin 500 mg IV for antibiotic prophylaxis. She was prepped and draped in the normal fashion. On she had a vacuum-assisted delivery of a live female infant at 00:37. Apgars of 9 and 9. Weight of 3300 g (7 pounds 4.4 ounces). Her case was complicated by hemorrhage of 1500 mL of blood loss. She was closed in a normal fashion. Please see the operative report for full details. 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 Her pain was well controlled and she had minimal lochia. She was ambulating, tolerating a regular diet and voiding normally in the morning of postoperative day #1. Patient was doing well with ambulation and did not have any lightheadedness, dizziness or shortness of breath. She was passing flatus and has not had a bowel movement. She was breast with bottle feeding without difficulty. She was afebrile and her hematocrit was 24.5 on POD #1. She desired to be discharged home on the afternoon of POD #1. Her blood type is O+. - Patient Instructions Diet: Regular Diet as Tolerated Activity: Apply Ice, As Tolerated, No Lifting Over 25 Pounds Activity, Other: Nothing in the vagina for 6 weeks. Driving: Do Not Drive (While taking narcotic medications or having significant pain.) Showering/Bathing: May Shower, No Tub Bathing/Swimming Wound/Incision Care: Keep Operative Site/Wound Site Clean and Dry Notify Provider of: Fever, Increased Pain, Swelling and Redness, Drainage, Nausea and/or Vomiting Other/Special Instructions: Please contact your physician's office if you note any bleeding or pus coming from the abdominal incision. Please contact your physician's office if you have heavy vaginal bleeding enough to soak a pad in less than an hour for several hours. Monitor for any signs of an infection in the breasts with severe pain or redness of the breast. - Discharge Plan *PRESCRIPTION DRUG MONITORING PROGRAM REVIEWED*: Not Applicable *COPY OF PRESCRIPTION DRUG MONITORING REPORT IN PATIENT FLORENCIO: Not Applicable Home Medications: Home Meds Docusate Sodium [Colace] 100 mg PO BID PRN 07/26/19 [History] No122/Iron/Folic Acid [ Multi Tablet] 1 each PO DAILY 07/26/19 [History] polyethylene glycoL 3350 [MiraLAX] 17 gm PO DAILY 07/26/19 [History] Acetaminophen [Tylenol] 650 mg PO Q6H PRN #0 tablet 07/28/19 [Rx] Ibuprofen [Motrin] 600 mg PO Q6H PRN tablet 07/28/19 [Rx] Magnesium Hydroxide [Milk of Magnesia] 30 ml PO BEDTIME PRN cup 07/28/19 [Rx] Patient Handouts: Jaundice, , Keeping Your [place] Safe and Healthy, [id number], Well Atmospheric Physicist, [place], Well Child Development, 3-5 Days Old, Care After Delivery, Well Child Nutrition, 0-3 Months Old, Well Child Safety, 0-12 Months Old, SIDS Prevention Information, Dekp-ac-Tixn, Well Atmospheric Physicist, 3-5 Days Old, Keeping Your [place] Safe and Healthy, Jaundice, [place], [id number] Referrals: Kaylynn Schaffer MD [Primary Care Provider] - 07/30/19 2:30 pm Arnoldo Loera MD [Physician] - (Follow-up in 2 weeks for routine postoperative appointment or earlier as needed.) - Discharge Summary/Plan Comment DC Time >30 min.: No - Patient Data Vitals - Most Recent: Last Vital Signs Temp 36.4 C 07/28/19 16:14 Pulse 99 07/28/19 16:14 Resp 14 07/28/19 16:14 BP 115/56 L 07/28/19 16:14 Pulse Ox 98 07/28/19 16:14 Weight - Most Recent: 102.965 kg I&O - Last 24 hours: Intake & Output 07/28/19 07/28/19 07/28/19 06:59 14:59 22:59 Intake Total 120 240 Output Total 1000 Balance -880 240 Lab Results - Last 24 hrs: Laboratory Results - last 24 hr 07/28/19 Range/Units 05:19 WBC 8.85 (3.98-10.04) K/mm3 RBC 2.78 L (3.98-5.22) M/mm3 Hgb 7.5 L D (11.2-15.7) gm/dl Hct 24.5 L (34.1-44.9) % MCV 88.1 (79.4-94.8) fl MCH 27.0 (25.6-32.2) pg MCHC 30.6 L (32.2-35.5) g/dl RDW Std Deviation 56.5 H (36.4-46.3) fL Plt Count 184 (182-369) K/mm3 MPV 9.8 (9.4-12.3) fl Neut % (Auto) 65.9 (34.0-71.1) % Lymph % (Auto) 24.9 (19.3-51.7) % Clare % (Auto) 7.7 (4.7-12.5) % Eos % (Auto) 1.1 (0.7-5.8) Baso % (Auto) 0.1 (0.1-1.2) % Neut # (Auto) 5.83 (1.56-6.13) K/mm3 Lymph # (Auto) 2.20 (1.18-3.74) K/mm3 Clare # (Auto) 0.68 H (0.24-0.36) K/mm3 Eos # (Auto) 0.10 (0.04-0.36) K/mm3 Baso # (Auto) 0.01 (0.01-0.08) K/mm3 Manual Slide Review Normal smear Med Orders - Current: Current Medications Acetaminophen (Tylenol) 650 mg PO Q4H PRN PRN Reason: Pain Diphenhydramine HCl (Benadryl) 25 mg IVPUSH Q6H PRN PRN Reason: Itching or Nausea Docusate Sodium (Colace) 100 mg PO BID [facility] Last Admin: 07/28/19 12:32 Dose: 100 mg Ephedrine Sulfate (Ephedrine Sulfate) 5 mg IVPUSH SEECOMMENT PRN PRN Reason: Other Ibuprofen (Motrin) 600 mg PO Q6H PRN PRN Reason: mild pain or fever Last Admin: 07/28/19 12:12 Dose: 600 mg Magnesium Hydroxide (Milk Of Magnesia) 30 ml PO BEDTIME PRN PRN Reason: Constipation Naloxone HCl (Narcan) 0.1 mg IVPUSH SEECOMMENT PRN PRN Reason: Respiratory Depression Ondansetron HCl (Zofran Odt) 4 mg PO Q4H PRN PRN Reason: Nausea/Vomiting Ondansetron HCl (Zofran) 4 mg IVPUSH Q8H PRN PRN Reason: Nausea Last Admin: 07/27/19 10:59 Dose: 4 mg Oxycodone/Acetaminophen (Percocet 325-5 Mg) 1 tab PO Q6H PRN PRN Reason: Pain (moderate 4-6) Oxycodone/Acetaminophen (Percocet 325-5 Mg) 2 tab PO Q6H PRN PRN Reason: Pain (severe 7-10) Prenat Multivit/[place]/Iron/Folic Ac ( Plus Iron) 1 each PO DAILY [facility] Last Admin: 07/28/19 12:32 Dose: 1 each Discontinued Medications Acetaminophen (Tylenol) 650 mg PO Q4H PRN PRN Reason: Pain (Mild 1-3) and fever Bupivacaine HCl (Marcaine 0.5%) Confirm Administered Dose 30 ml .ROUTE .[facility]-MED ONE Stop: 07/26/19 23:54 Last Admin: 07/27/19 00:24 Dose: 20 ml Bupivacaine HCl (Sensorcaine-Mpf 0.25%) 10 ml .ROUTE .[facility] ONE Stop: 07/26/19 00:01 Cefazolin Sodium (Ancef) Confirm Administered Dose 2 gm .ROUTE .[facility] ONE Stop: 07/26/19 23:56 Citric Acid/Sodium Citrate (Bicitra Solution) 30 ml PO ONETIME ONE Stop: 07/26/19 23:48 Last Admin: 07/26/19 23:54 Dose: 30 ml Diphenhydramine HCl (Benadryl) 25 mg IVPUSH Q6H PRN PRN Reason: pruritis Ephedrine Sulfate (Ephedrine Sulfate) 5 mg IVPUSH ASDIRECTED PRN PRN Reason: Hypotension Ephedrine Sulfate (Ephedrine Sulfate) 5 mg IVPUSH ASDIRECTED PRN PRN Reason: Hypotension Ephedrine Sulfate (Ephedrine 25 Mg/5 Ml Syringe) Confirm Administered Dose 25 mg IV .[facility] ONE Stop: 07/27/19 01:02 Ephedrine Sulfate (Ephedrine 25 Mg/5 Ml Syringe) Confirm Administered Dose 25 mg IV .[facility] ONE Stop: 07/27/19 02:00 Famotidine (Pepcid) 20 mg PO Q12H PRN PRN Reason: Heartburn Fentanyl (Sublimaze) 100 mcg EPIDUR Q3H PRN PRN Reason: Pain Last Admin: 07/26/19 20:08 Dose: 100 mcg Fentanyl (Sublimaze) Confirm Administered Dose 100 mcg .ROUTE .[facility] ONE Stop: 07/26/19 23:56 Fentanyl (Sublimaze) 50 mcg IVPUSH Q5M PRN PRN Reason: Pain Fentanyl/Bupivacaine HCl (Fentanyl/Bupivacaine/Ns 2 Mcg-0.125% 100 Ml) 100 ml EPIDUR ASDIRECTED HERMAN Last Admin: 07/26/19 20:09 Dose: 100 ml Hydromorphone HCl (Dilaudid) 0.5 mg IVPUSH Q15M PRN PRN Reason: Pain (severe 7-10) Lactated Ringer's (Ringers, Lactated) 1,000 mls @ 100 mls/hr IV ASDIRECTED HERMAN Last Admin: 07/26/19 23:53 Dose: 999 mls/hr Oxytocin/Lactated Ringer's (Pitocin In Lr 10 Units/1,000 Ml) 10 unit in 1,000 mls @ 12 mls/hr IV TITRATE HERMAN; Protocol Last Titration: 07/26/19 23:15 Dose: 7 munits/min, 42 mls/hr Oxytocin/Lactated Ringer's (Pitocin In Lr 10 Units/1,000 Ml) 10 unit in 1,000 mls @ 500 mls/hr IV .CONTINUOUS HERMAN Azithromycin 500 mg/ Sodium (Chloride) 250 mls @ 250 mls/hr IV ONETIME ONE Stop: 07/27/19 00:54 Last Admin: 07/27/19 06:54 Dose: 250 mls/hr Cefazolin Sodium/Dextrose 2 gm (/ Premix) 50 mls @ 100 mls/hr IV ONETIME ONE Stop: 07/27/19 00:23 Last Admin: 07/27/19 06:55 Dose: 100 mls/hr Lactated Ringer's (Ringers, Lactated) Confirm Administered Dose 1,000 mls @ as directed .ROUTE .[facility]-MED ONE Stop: 07/26/19 23:56 Phenylephrine HCl 1 mg/ Sodium (Chloride) 10.1 mls @ 1 mls/sec IV TITRATE HERMAN; Protocol Lactated Ringer's (Ringers, Lactated) Confirm Administered Dose 1,000 mls @ as directed .ROUTE .STK-MED ONE Stop: 07/27/19 00:21 Lactated Ringer's (Ringers, Lactated) 1,000 mls @ 125 mls/hr IV ASDIRECTED HERMAN Stop: 07/27/19 11:13 Last Admin: 07/27/19 10:59 Dose: 125 mls/hr Oxytocin/Lactated Ringer's (Pitocin In Lr 10 Units/1,000 Ml) 10 unit in 1,000 mls @ 100 mls/hr IV .CONTINUOUS HERMAN Ketorolac Tromethamine (Toradol) Confirm Administered Dose 30 mg .ROUTE .STK- MED ONE Stop: 07/26/19 23:56 Ketorolac Tromethamine (Toradol) 30 mg IVPUSH Q6H HERMAN Stop: 07/27/19 19:31 Last Admin: 07/27/19 19:57 Dose: 30 mg Lidocaine HCl (Xylocaine 1%) 20 ml INJECT ONETIME ONE Stop: 07/26/19 08:06 Last Admin: 07/27/19 06:55 Dose: Not Given Lidocaine/Epinephrine (Xylocaine-Mpf 2%-Epi 1:200,000) Confirm Administered Dose 20 ml .ROUTE .STK-MED ONE Stop: 07/26/19 23:56 Metoclopramide HCl (Reglan) 10 mg IVPUSH ONETIME ONE Stop: 07/26/19 23:47 Last Admin: 07/26/19 23:54 Dose: 10 mg Miscellaneous Medication (Phenylephrine 1 Mg/10 Ml-Ns) Confirm Administered Dose 1 mg IV .STK-MED ONE Stop: 07/26/19 23:56 Miscellaneous Medication (Phenylephrine 1 Mg/10 Ml-Ns) Confirm Administered Dose 1 mg IV .STK-MED ONE Stop: 07/27/19 01:08 Morphine Sulfate (Duramorph Pf) Confirm Administered Dose 1 mg .ROUTE .STK-MED ONE Stop: 07/26/19 23:56 Ondansetron HCl (Zofran) 4 mg IVPUSH ONETIME PRN PRN Reason: Nausea/Vomiting Ondansetron HCl (Zofran) 4 mg IVPUSH Q4H PRN PRN Reason: Nausea/Vomiting Ondansetron HCl (Zofran) Confirm Administered Dose 4 mg .ROUTE .STK-MED ONE Stop: 07/26/19 23:56 Ondansetron HCl (Zofran) 4 mg IVPUSH ONETIME PRN PRN Reason: Nausea/Vomiting Oxytocin (Pitocin) Confirm Administered Dose 10 unit .ROUTE .STK-MED ONE Stop: 07/26/19 23:56 Sodium Chloride (Saline Flush) 10 ml FLUSH ASDIRECTED PRN PRN Reason: Keep Vein Open
== END 2019-07-28 18:00 | disposition home or self-care (01) | DRG 787 ==
LOC: JD.OBCHECK 07:14 → JD.OB 07:16 → JD.OBCHECK 08:05 → OBSVTOIN 07-27 00:37 → JD.OB 07-27 00:38
PROVIDERS: ADMIT Family Medicine; ATTEND Family Medicine
PROC: 10D00Z1 Extraction of Products of Conception, Low, Open Approach (ICD-10-PCS; principal; 2019-07-27)
PROC: 10907ZC Drainage of Amniotic Fluid, Therapeutic from Products of Conception, Via Natural or Artificial Opening (ICD-10-PCS; 2019-07-27)
PROC: 3E0R3BZ Introduction of Anesthetic Agent into Spinal Canal, Percutaneous Approach (ICD-10-PCS; 2019-07-27)
PROC: 00HU33Z Insertion of Infusion Device into Spinal Canal, Percutaneous Approach (ICD-10-PCS; 2019-07-27)
DX: O34.211 Maternal care for low transverse scar from previous cesarean delivery (principal); O72.1 Other immediate postpartum hemorrhage; O99.214 Obesity complicating childbirth; E66.01 Morbid (severe) obesity due to excess calories; O62.1 Secondary uterine inertia; O99.62 Diseases of the digestive system complicating childbirth; K59.09 Other constipation; O99.284 Endocrine, nutritional and metabolic diseases complicating childbirth; E78.00 Pure hypercholesterolemia, unspecified; O99.334 Smoking (tobacco) complicating childbirth; F17.200 Nicotine dependence, unspecified, uncomplicated; Z3A.39 39 weeks gestation of pregnancy; Z37.0 Single live birth; Z79.82 Long term (current) use of aspirin; Z79.899 Other long term (current) drug therapy
CPT/HCPCS: 01967; 01968; 36415; 51702; 59025; 85025; 85027; 86592; 86850; 86900; 86901; 94762; A9270-GY; J0171; J0456; J0690; J1885; J2274; J2370; J2405; J2590; J2765; J3010; J3490; J7050; J7120

== ENCOUNTER 2020-09-06 04:59 | Inpatient (IN) | payer MEDICAID, OTHER ==
--- NOTE | 2020-08-31 12:16 | PCM.LDHP ---
L&D History of Present Illness - General Date of Service: 08/31/20 Admit Problem/Dx: Admission Diagnosis/Problem Admission Diagnosis/Problem Source of Information: Patient History Limitations: Reports: No Limitations - History of Present Illness Introduction:: Jemima Crawford is a 34-year-old -0-2-2 female at 38 weeks 1 day (ANGELLA 09/13/2020) by a 6-week ultrasound on 08/31/2020 who presented for preoperative visit as well as routine care visit. She was scheduled for a section on 09/06/2020 when she will be 39 weeks 0 days. She was overall doing well at that time and did not have any significant concerns. Her infant was moving well and was not having any concerns with movement. She denies any contractions. She would have some occasional pelvic and back pain that would be more when she was active or laying on certain sides. It would resolve with additional rest. She did have some headaches in the last week but these had resolved by her appointment. She denies any leaking of fluid or vaginal bleeding. Associated Symptoms: Denies: vaginal bleeding, vaginal discharge, vaginal fluid Present Illness Comments:: Jemima Crawford is a 34-year-old -0-2-2 female at 38 weeks 1 day (ANGELLA 09/13/2020) by a 6-week ultrasound who presented for preoperative visit as well as routine care visit on 08/31/2020. She was scheduled for a section on 09/06/2020 when she will be 39 weeks 0 days. She has had routine care with Dr. Schaffer throughout the starting at 6 weeks gestational age. There have not been any significant complications. Patient was noted to be prediabetic prior to and had a failed 1 hour glucose tolerance test with a normal 3-hour glucose tolerance test with only one of the values elevated at the 2-hour griffin. Patient does have a history of a failed trial of labor after section in July 2019 and desired to have repeat section with this . Her is complicated by: * History of section x2 with for section done for failure to progress and a failed trial of labor after section in July 2019. 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 G1: 01/12/2002 spontaneous in early G2: 01/15/2005, primary section, 41 weeks, 8 pounds, male infant, epidural for anesthesia, section done for failure to progress G3: 01/17/2010, ectopic G4: 07/27/2019, repeat section, 39 weeks 6 days, 7 pounds 4 ounces, epidural for anesthesia, failed trial of labor after section with failure to progress G5: Current labs Blood type: O+ Antibody screen: Negative First trimester hematocrit/hemoglobin: 34.8%/11.3 on 02/21/2020 Platelets: 326 on 02/21/2020 Urine culture: Mixed jada suggestive of contamination Rubella status: Immune Hepatitis B surface antigen: Negative RPR: Negative Hepatitis C: Negative HIV: Negative Gonorrhea: Negative Chlamydia: Negative Early 1 hour glucose tolerance test: 147 on 04/25/2020 Early 3-hour glucose tolerance test: Fasting 88, 1 hour 168, 2-hour 170, 3-hour 63 on 05/02/2020 Genetic testing: Normal prequel genetic screening, male infant on testing Anatomy ultrasound: Normal anatomy ultrasound, 48th percentile on 06/29/2020 3 hour glucose tolerance test: Fasting 87, 1 hour 161, 2-hour 136 and 3-hour 79 done on 06/19/2020 Second trimester hematocrit/hemoglobin: 35.4%/11.3 on 05/02/2020 Platelets: 279 on 05/02/2020 Third trimester hematocrit/hemoglobin: 34.9%/11.1 on 08/21/2020 Platelets: 264 on 08/21/2020 GBS status: Negative - Related Data Allergies/Adverse Reactions: Allergies Allergy/AdvReac Type Severity Reaction Status Date / Time No Known Allergies Allergy Verified 07/26/19 10:45 Home Medications: Home Meds Docusate Sodium [Colace] 100 mg PO BID PRN 07/26/19 [History] No122/Iron/Folic Acid [ Multi Tablet] 1 each PO DAILY 07/26/19 [History] polyethylene glycoL 3350 [MiraLAX] 17 gm PO DAILY 07/26/19 [History] Acetaminophen [Tylenol] 650 mg PO Q6H PRN #0 tablet 07/28/19 [Rx] Ibuprofen [Motrin] 600 mg PO Q6H PRN tablet 07/28/19 [Rx] Magnesium Hydroxide [Milk of Magnesia] 30 ml PO BEDTIME PRN cup 07/28/19 [Rx] Past Medical History HEENT History: Reports: None Cardiovascular History: Reports: High Cholesterol Respiratory History: Reports: None Gastrointestinal History: Reports: Chronic Constipation, Fatty Liver, Other (See Below) Other Gastrointestinal History: RUQ pain BLOCKING 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 History: Reports: Ectopic , : 5 Para: 2 Musculoskeletal History: Reports: None Neurological History: Reports: None Psychiatric History: Reports: Anxiety Endocrine/Metabolic History: Reports: Hypothyroidism (She was on low dose levothyroxine for a time, but stopped taking the medicine and TSH in early course was wnl.), Obesity/BMI 30+, Other (See Below) (Prediabetes, and was on metformin for a period of time over a year ago, prior to getting .) Other Endocrine/Metabolic History: Pre diabetes, Elevated TSH Hematologic History: Reports: None Immunologic History: Reports: None Oncologic (Cancer) History: Reports: None Dermatologic History: Reports: Other (See Below) Other Dermatologic History: acanthosis nigricans, Vitiligo - Past Surgical History GI Surgical History: Reports: EGD Female Surgical History: Reports: Section (x2), Other (See Below) (Salpingectomy performed for ectopic ) Social & Family History - Family History Family Medical History: No Pertinent Family History - Tobacco Use Tobacco Use Status *Q: Never Tobacco User - Tobacco Core Measures Tobacco Use/Smoking Within Last 30 Days: No Smokeless Tobacco Use in Last 30 Days: No - Alcohol Use Alcohol Use History: No Alcohol Use in Last Twelve Months: No - Recreational Drug Use Recreational Drug Use: No Drug Use in Last 12 Months: No - Living Situation & Occupation Living situation: Reports: Single, with Significant Other, with Family Occupation: Employed H&P Review of Systems - Review of Systems: Review Of Systems: See Below General: Denies: Fever, Chills, Malaise, Weakness, Fatigue HEENT: Reports: Sinus Congestion (of , unchanged throughout the ). Denies: Headaches, Rhinitis, Post Nasal Drip, Sore Throat Pulmonary: Denies: Shortness of Breath, Wheezing, Pleuritic Chest Pain, Cough Cardiovascular: Denies: Chest Pain, Palpitations, Dyspnea on Exertion, Orthopnea Gastrointestinal: Reports: Constipation. Denies: Abdominal Pain, Diarrhea, Nausea, Vomiting Genitourinary: Denies: Dysuria, Frequency, Burning, Pain, Urgency Musculoskeletal: Reports: Back Pain (and pelvic pain of ) Skin: Denies: Rash, Lesions Psychiatric: Denies: Depression, Anxiety L&D Exam - Exam Exam: See Below - Vital Signs Vital Signs: BP: 102/72 Weight: 103.419 kg - OB Specific Fundal Height In cm: 42 Movement: Active Heart Tones: Present Heart Tones per Min: 138 Presentation: Vertex - Exam General: Alert, Oriented HEENT: Conjunctiva Clear, EOMI Neck: Supple, Trachea Midline Lungs: Clear to Auscultation, Normal Respiratory Effort Cardiovascular: Regular Rate, Regular Rhythm GI/Abdominal Exam: Soft, Non-Tender, No Distention, Other (Gravid). No: Guarding, Rigid, Rebound Genitourinary: Deferred Extremities: Normal Inspection, No Pedal Edema Skin: Warm, Dry, Intact Psychiatric: Alert, Normal Affect, Normal Mood - Problem List (1) History of delivery SNOMED Code(s): 450006604 ICD Code: Z98.891 - HISTORY OF UTERINE SCAR FROM PREVIOUS SURGERY Status: Acute (2) History of delivery affecting SNOMED Code(s): 505494296, 501187941 ICD Code: O34.219 - MATERNAL CARE FOR UNSP TYPE SCAR FROM PREVIOUS DEL Status: Acute (3) 39 weeks gestation of SNOMED Code(s): 92224697 ICD Code: Z3A.39 - 39 WEEKS GESTATION OF Status: Acute (4) Obesity affecting in third trimester SNOMED Code(s): 938933234487, 777973448561 ICD Code: O99.213 - OBESITY COMPLICATING , THIRD TRIMESTER Status: Acute Problem List Initiated/Reviewed/Updated: Yes Assessment/Plan Comment:: Jemima Crawford is a 34-year-old -0-2-2 female who is currently at 38 weeks 1 day at her visit that occurred on 08/31/2020 and who will be 39 weeks 0 days (ANGELLA 09/13/2020) on day of surgery on 09/06/2020 who is scheduled for repeat section in the setting of history of section x2 and history of failed trial of labor after section with complicated by prediabetes and obesity Admit to inpatient after section NST prior to section Place IV and have Lactated Ringer's at 125 ml/hr SCDs for DVT prophylaxis Nothing by mouth Activity as tolerated Plan for spinal injection for anesthesia CBC, RPR and type and screen prior to surgery Plans to breast-feed after delivery Plan for Ancef 2 g IV for antibiotic prophylaxis prior to surgery Arnoldo Loera M.D. 12:36 PM 09/01/2019
[~2020-09-06 04:59] MED LIST changes: -Bupivacaine 0.25% 10 ML SDV ONE; +Lidocaine 1%/Sod Bicarbonate in NS 8.4% 1 ML Syringe IDERM PRN; +Sodium Chloride 0.9% 10 ML Syringe FLUSH PRN
[2020-09-06] MEDS ORDERED: ceFAZolin 2 GM in Premix Bag 1 BAG IV ONE (05:08)
[2020-09-06] MEDS ORDERED: Metoclopramide 10 MG/2 ML SDV IVPUSH ONE (05:08)
[2020-09-06] MEDS ORDERED: Citric Acid/Sodium Citrate Solution 30 ML Cup PO ONE (05:08)
[2020-09-06] MEDS ORDERED: Sodium Chloride 0.9% 10 ML Syringe FLUSH PRN (05:08)
[2020-09-06] MEDS ORDERED: Lactated Ringers 1,000 ML IV SCH (05:15)
[2020-09-06] MEDS ORDERED: Oxytocin/Lactated Ringers 10 UNIT/1,000 ML BAG IV SCH ×2 (05:15→10:39)
[2020-09-06] MEDS: Lactated Ringers 1,000 ML IV SCH ×2 (05:45→06:22)
[2020-09-06] MEDS ORDERED: ePHEDrine 50 MG/ML SDV ONE (07:07)
[2020-09-06] MEDS ORDERED: ceFAZolin 1 GM Vial ONE ×2 (07:07→07:11)
[2020-09-06] MEDS ORDERED: Morphine PF 10 MG/10 ML SDV ONE (07:07)
[2020-09-06] MEDS ORDERED: Ketorolac 30 MG/ML SDV ONE (07:13)
[2020-09-06] MEDS ORDERED: Oxytocin 10 Units/1 ML SDV ONE (07:13)
[2020-09-06] MEDS ORDERED: Ketorolac 15 MG/ML SDV ONE (07:13)
[2020-09-06] MEDS ORDERED: Bupivacaine 0.5% 30 ML SDV ONE (07:17)
[2020-09-06] MEDS ORDERED: Lactated Ringers 1,000 ML ONE ×2 (07:18→07:59)
--- NOTE | 2020-09-06 07:31 | PCM.PREANE ---
Preanesthetic Assessment - Procedure Proposed Procedure: C section - Anesthesia/Transfusion/Family Hx Anesthesia History: Prior Anesthesia Without Reaction Family History of Anesthesia Reaction: No Transfusion History: No Prior Transfusion(s) Intubation History: Unknown - Review of Systems General: No Symptoms Pulmonary: No Symptoms Cardiovascular: Dyspnea on Exertion Gastrointestinal: No Symptoms Neurological: No Symptoms Other: Reports: None - Physical Assessment NPO Status Date: 09/05/20 NPO Status Time: 00:00 Vital Signs: Last Vital Signs Temp 36.5 C 09/06/20 05:22 Pulse 86 09/06/20 05:22 Resp 16 09/06/20 05:22 BP 121/53 L 09/06/20 05:22 Pulse Ox 96 09/06/20 05:22 Height: 1.55 m Weight: 106.141 kg ASA Class: 2 Mental Status: Alert & Oriented x3 Airway Class: Mallampati = 2 Dentition: Reports: Normal Dentition Thyro-Mental Finger Breadths: 2 Mouth Opening Finger Breadths: 2 ROM/Head Extension: Full Lungs: Clear to Auscultation, Normal Respiratory Effort Cardiovascular: Regular Rate, Regular Rhythm - Lab Values: Laboratory Last Values WBC 8.65 K/mm3 (3.98-10.04) 09/06/20 05:25 RBC 4.11 M/mm3 (3.98-5.22) 09/06/20 05:25 Hgb 11.1 gm/dl (11.2-15.7) L 09/06/20 05:25 Hct 34.8 % (34.1-44.9) 09/06/20 05:25 MCV 84.7 fl (79.4-94.8) 09/06/20 05:25 MCH 27.0 pg (25.6-32.2) 09/06/20 05:25 MCHC 31.9 g/dl (32.2-35.5) L 09/06/20 05:25 RDW Std Deviation 47.4 fL (36.4-46.3) H 09/06/20 05:25 Plt Count 256 K/mm3 (182-369) 09/06/20 05:25 MPV 9.6 fl (9.4-12.3) 09/06/20 05:25 Neut % (Auto) 64.3 % (34.0-71.1) 09/06/20 05:25 Lymph % (Auto) 26.0 % (19.3-51.7) 09/06/20 05:25 [place] % (Auto) 8.1 % (4.7-12.5) 09/06/20 05:25 Eos % (Auto) 1.0 (0.7-5.8) 09/06/20 05:25 Baso % (Auto) 0.1 % (0.1-1.2) 09/06/20 05:25 Neut # (Auto) 5.56 K/mm3 (1.56-6.13) 09/06/20 05:25 Lymph # (Auto) 2.25 K/mm3 (1.18-3.74) 09/06/20 05:25 [place] # (Auto) 0.70 K/mm3 (0.24-0.36) H 09/06/20 05:25 Eos # (Auto) 0.09 K/mm3 (0.04-0.36) 09/06/20 05:25 Baso # (Auto) 0.01 K/mm3 (0.01-0.08) 09/06/20 05:25 SARS-CoV-2 RNA ([place]) Negative (NEGATIVE) 09/06/20 05:25 Blood Type O POSITIVE 09/06/20 05:25 Gel Antibody Screen Negative 09/06/20 05:25 - Allergies Allergies/Adverse Reactions: Allergies Allergy/AdvReac Type Severity Reaction Status Date / Time No Known Allergies Allergy Verified 09/06/20 06:14 - Anesthesia Plan Pre-Op Medication Ordered: Antacids - Acknowledgements Anesthesia Type Planned: Spinal Pt an Appropriate Candidate for the Planned Anesthesia: Yes Alternatives and Risks of Anesthesia Discussed w Pt/Guardian: Yes Pt/Guardian Understands and Agrees with Anesthesia Plan: Yes PreAnesthesia Questionnaire HEENT History: Reports: None Cardiovascular History: Reports: High Cholesterol Respiratory History: Reports: None Gastrointestinal History: Reports: Chronic Constipation, Fatty Liver, GERD, Other (See Below) Other Gastrointestinal History: RUQ pain 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 History: Reports: Ectopic , , Other (See Below) Other OB/BYN History: bacterial vaginosis Musculoskeletal History: Reports: None Neurological History: Reports: None Psychiatric History: Reports: Anxiety Endocrine/Metabolic History: Reports: Hypothyroidism, Obesity/BMI 30+, Other (See Below) Other Endocrine/Metabolic History: Pre diabetes, Elevated TSH Hematologic History: Reports: None Immunologic History: Reports: None Oncologic (Cancer) History: Reports: None Dermatologic History: Reports: Other (See Below) Other Dermatologic History: acanthosis nigricans, Vitiligo - Past Surgical History Head Surgeries/Procedures: Reports: None GI Surgical History: Reports: EGD Female Surgical History: Reports: Section, Tubal Ligation, Other (See Below) Other Female Surgeries/Procedures: salpingectomy with ectopic - SUBSTANCE USE Tobacco Use Status *Q: Never Tobacco User Second Hand Smoke Exposure: No Recreational Drug Use History: No - HOME MEDS Home Medications: Home Meds No122/Iron/Folic Acid [ Multi Tablet] 1 each PO DAILY 07/26/19 [History] Aspirin 81 mg PO DAILY 09/06/20 [History] - CURRENT (IN HOUSE) MEDS Current Meds: Current Medications Lactated Ringer's (Ringers, Lactated) 1,000 mls @ 125 mls/hr IV ASDIRECTED HERMAN Stop: 09/06/20 23:00 Last Admin: 09/06/20 06:22 Dose: 999 mls/hr Documented by: Lactated Ringer's (Ringers, Lactated) 1,000 mls @ 125 mls/hr IV ASDIRECTED HERMAN Oxytocin/Lactated Ringer's (Pitocin In Lr 10 Units/1,000 Ml) 10 unit in 1,000 mls @ 100 mls/hr IV ASDIRECTED HERMAN; Protocol Lidocaine/Sodium Bicarbonate (Lidocaine 1%/Sod Bicarbonate In Ns 8.4% 1 Ml Syringe) 0.25 ml IDERM ONETIME PRN PRN Reason: Prior to IV Start Stop: 09/06/20 18:00 Sodium Chloride (Sodium Chloride 0.9% 10 Ml Syringe) 10 ml FLUSH ASDIRECTED PRN PRN Reason: Keep Vein Open Stop: 09/06/20 18:00 Sodium Chloride (Sodium Chloride 0.9% 10 Ml Syringe) 10 ml FLUSH ASDIRECTED PRN PRN Reason: Keep Vein Open Discontinued Medications Bupivacaine HCl (Bupivacaine 0.5% 30 Ml Sdv) Confirm Administered Dose 30 ml .ROUTE .STK-MED ONE Stop: 09/06/20 07:18 Cefazolin Sodium (Cefazolin 1 Gm Vial) Confirm Administered Dose 2 gm .ROUTE .STK-MED ONE Stop: 09/06/20 07:08 Cefazolin Sodium (Cefazolin 1 Gm Vial) Confirm Administered Dose 2 gm .ROUTE .STK-MED ONE Stop: 09/06/20 07:12 Citric Acid/Sodium Citrate (Citric Acid/Sodium Citrate Solution 30 Ml Cup) 30 ml PO ONETIME ONE Stop: 09/06/20 05:09 Last Admin: 09/06/20 07:03 Dose: 30 ml Documented by: Ephedrine Sulfate (Ephedrine 50 Mg/Ml Sdv) Confirm Administered Dose 50 mg .ROUTE .STK-MED ONE Stop: 09/06/20 07:08 Cefazolin Sodium/Dextrose 2 gm (/ Premix) 50 mls @ 100 mls/hr IV ONETIME ONE Stop: 09/06/20 05:37 Lactated Ringer's (Ringers, Lactated) Confirm Administered Dose 1,000 mls @ as directed .ROUTE .STK-MED ONE Stop: 09/06/20 07:19 Ketorolac Tromethamine (Ketorolac 15 Mg/Ml Sdv) Confirm Administered Dose 15 mg .ROUTE .ST-MED ONE Stop: 09/06/20 07:14 Metoclopramide HCl (Metoclopramide 10 Mg/2 Ml Sdv) 10 mg IVPUSH ONETIME ONE Stop: 09/06/20 05:09 Last Admin: 09/06/20 07:03 Dose: 10 mg Documented by: Morphine Sulfate (Morphine Pf 10 Mg/10 Ml Sdv) Confirm Administered Dose 10 mg .ROUTE .STK-MED ONE Stop: 09/06/20 07:08 Oxytocin (Oxytocin 10 Units/1 Ml Sdv) Confirm Administered Dose 10 unit .ROUTE .STK-MED ONE Stop: 09/06/20 07:14
[2020-09-06] MEDS ORDERED: diphenhydrAMINE 50 MG/ML SDV IVPUSH PRN ×2 (09:15→10:39)
--- NOTE | 2020-09-06 09:16 | PCM.POSTAN ---
POST ANESTHESIA ASSESSMENT - MENTAL STATUS Mental Status: Alert, Oriented - VITAL SIGNS Vital Signs: Last Vital Signs Temp 36.5 C 09/06/20 05:22 Pulse 86 09/06/20 05:22 Resp 16 09/06/20 05:22 BP 121/53 L 09/06/20 05:22 Pulse Ox 96 09/06/20 05:22 - RESPIRATORY Respiratory Status: Respiratory Rate WNL, Airway Patent, O2 Saturation Stable - CARDIOVASCULAR CV Status: Pulse Rate WNL, Blood Pressure Stable - GASTROINTESTINAL GI Status: No Symptoms - PAIN Pain Score: 0 - POST OP HYDRATION Hydration Status: Adequate & Stable - OBSERVATIONS Free Text/Narrative:: no anesthesia complications noted
--- NOTE | 2020-09-06 09:57 | PCM.OPNOTE ---
- General Post-Op/Procedure Note Date of Surgery/Procedure: 09/06/20 Operative Procedure(s): Repeat section with vacuum assistance for delivery of the infant and Maylard incision of half of the left rectus abdominis muscles. Findings: Live female delivered in vertex presentation at 08 19. Apgars were 6 and 9. weight was 3290 g (7 lbs 4.1 oz). Vacuum assistance was used for delivery of the infant and there were 3 total pop offs during delivery of the . A partial Maylard incision was made of the left rectus abdominis muscles approximately mcc across the muscles and repaired after the delivery of the infant. Pre Op Diagnosis: 39 weeks gestational age, history of section, desires repeat section Post-Op Diagnosis: Same Anesthesia Technique: Spinal Primary Surgeon: Arnoldo Loera Anesthesia Provider: Hema Farnsworth Sand Cleaning Machine Operator: Kaylynn Schaffer Reason Sand Cleaning Machine Operator Was Necessary: Patient safety and reduction of morbidity and mortality Role of Sand Cleaning Machine Operator: Retraction for visualization Pathology: None Fluid Replacement, Intraop: 2,900 Output, Urine Amount: 225 EBL in mLs: 1,000 Complications: Vacuum assistance for delivery of the and partial Maylard incision of the left rectus and abdominis muscles Condition: Good Free Text/Narrative:: Intake & Output 09/05/20 09/06/20 09/06/20 22:59 06:59 14:59 Output Total 450 Balance -450 Length of procedure: 55 minutes Procedure in Detail: The patient was seen in room #5 and the risks, benefits and complications were discussed with the patient. The patient desired to proceed with section and appropriate consents were reviewed. The patient was taken to operating room #1. A Time Out was held and the patient was identified using 2 identifiers and the procedure was confirmed. The patient was given spinal anesthesia and was placed in dorsal supine position with leftward tilt. She was given 2 g Ancef for antibiotic prophylaxis. A Retana catheter was inserted without difficulty. A Traxi panniculus retractor was applied to the abdomen for visualization of the previous Pfannenstiel skin incision. The patient was prepped and draped in the usual sterile manner. The abdominal skin was tested and the spinal anesthesia was found to be adequate. The skin was injected with 0.5% marcaine for local anesthesia. A Pfannenstiel skin incision was made through the previous skin incision and carried down through the subcutaneous tissue to the fascia with the scapel. The fascia was nicked in the midline using a scalpel and the fascial incision was extended transversely with Huber scissors. The inferior aspect of the fascia was grasped with Braxton clamps and tented upwards. The fascia was from the underlying rectus muscle bluntly and sharply with Huber scissors. Attention was then turned to the superior aspect of the fascia and was grasped using Braxton clamps and tented upwards. The underlying rectus muscle was dissected off bluntly and sharply with Huber scissors. Hemostat clamps were used to get down to the peritoneum and the peritoneum was grasped with the hemostat clamps. The peritoneum between the hemostat clamps was checked to ensure that there was not any evidence of intestinal tissue prior to incision. The peritoneum was identified and entered sharply using Metzenbaum scissors. The utero-vesical peritoneal reflection was identified and the peritoneum was incised with Metzenabaum scissors and transversely extended. The bladder blade was inserted and the lower uterine segment was identified. A low transverse uterine incision was made sharply with a scalpel and extended laterally bluntly. The 's head was brought to the uterine incision, the bladder blade was removed and the was attempted to be delivered. This was unsuccessful with abdominal pressure. Decision was made to attempt to deliver the with vacuum assistance and a mushroom cup vacuum extractor was applied to the head. Suction was applied to 550 mmHg and abdominal pressure was again applied. The head was attempted to be delivered but was unsuccessful. There were 2 pop offs during this time. A partial left Maylard rectus abdominis incision was made for further visualization and space for delivery of the infant. The mus hroom cup vacuum extractor was again applied to the head and suction applied with vacuum at 550 mmHg. Abdominal pressure was applied and on 09/06/2020 a live female infant was delivered in vertex position at 08:19, wt of 3290 grams, 7 pounds and 4.1 ounces. APGARS were 6 & 9. The nose and mouth were suctioned with bulb suction, the cord was doubly clamped and cut and was transferred to the awaiting scorekeeper, Dr. Rankin. The placenta was removed intact and appeared normal with a three vessel cord. The uterus was exteriorized and the uterine cavity was cleaned using lap spong es. The hysterotomy was closed with a running locked suture of 0-Vicryl. A second suture of 0-Vicryl was used to imbricate the hysterotomy. The hysterotomy was hemostatic. The uterus, tubes and ovaries appeared overall normal. The uterus was then returned into the abdominal cavity. The hysterotomy was noted to remain hemostatic inside the abdominal cavity. The partial left rectus abdominis Maylard incision was repaired with 2 [id number] sutures with 0 Monocryl. Hemostasis was noted at this time. The fascia was noted to be hemostatic and the fascia was then reapproximated with running sutures of 0 PDS. The subcutaneous fat was reapproximated using 0 Vicryl. The skin was reapproximated using 4-0 Monocryl and Steri-strips were applied over the incision. Instrument, sponge, and needle counts were correct prior to the abdominal closure and at the conclusion of the case. Arnoldo Loera MD 10:10 AM 09/06/2020
[2020-09-06] MEDS ORDERED: Ondansetron 4 MG Tab.DIS PO PRN (10:39)
[2020-09-06] MEDS ORDERED: Naloxone 0.4 MG/ML SDV IVPUSH PRN (10:39)
[2020-09-06] MEDS ORDERED: ePHEDrine 50 MG/ML SDV IVPUSH PRN (10:39)
[2020-09-06] MEDS ORDERED: Acetaminophen/oxyCODONE 325-5 MG Tab PO PRN ×2 (10:39)
[2020-09-06] MEDS ORDERED: Dextrose 5%-Lactated Ringers 1,000 ML IV SCH (10:39)
[2020-09-06] MEDS: Ketorolac 15 MG/ML SDV IVPUSH SCH ×2 (14:29→20:43)
[2020-09-06] MEDS: Docusate Sodium 100 MG Cap PO SCH (20:48)
[2020-09-06] MEDS ORDERED: Magnesium Hydroxide 400 MG/5 ML Susp 30 ML Cup PO PRN (21:00)
[2020-09-07] MEDS: Ketorolac 15 MG/ML SDV IVPUSH SCH (02:35)
--- NOTE | 2020-09-07 07:57 | PCM48HPAN ---
Post Anesthesia Note - EVALUATION WITHIN 48HRS OF ANESTHETIC Vital Signs in Normal Range: Yes Patient Participated in Evaluation: Yes Respiratory Function Stable: Yes Airway Patent: Yes Cardiovascular Function Stable: Yes Hydration Status Stable: Yes Pain Control Satisfactory: Yes Nausea and Vomiting Control Satisfactory: Yes Mental Status Recovered: Yes Vital Signs: Last Vital Signs Temp 36.7 C 09/07/20 04:20 Pulse 91 09/07/20 04:20 Resp 16 09/07/20 07:00 BP 102/49 L 09/07/20 04:20 Pulse Ox 99 09/07/20 07:00 - COMMENTS/OBSERVATIONS Free Text/Narrative:: no anesthesia complications noted
[2020-09-07] MEDS: Docusate Sodium 100 MG Cap PO SCH ×2 (09:00→21:37)
[2020-09-07] MEDS: Prenatal Multivitamin with Calcium/Folic Acid/Iron Tab PO SCH (09:00)
--- NOTE | 2020-09-07 09:20 | PCM.SN.2 ---
- Free Text/Narrative Note: note: Postoperative day #1. Patient is doing well in the period. Minimal lochia, voiding well, ambulated without problems. Nursing without concerns. Slight amount of discomfort the right end of the incision. Patient ambulating well and even though her hemoglobin is down. Will monitor at this time. Patient is afebrile, vital signs are stable Lungs are clear with good breath sounds in all lung escalona. Cardiovascular exam shows regular rate and rhythm. Abdomen is flat, soft, uterus is below the umbilicus and is firm and nontender. Dressings are moistened with serous/bloody fluid. No active bleeding noted. Incision is intact with Steri-Strips in place. Positive bowel sounds are noted. Legs are nontender. Hemoglobin 8.7. Platelets 212. White blood count 8.27. Assessment: Post operative/ day #1recovery going well. Plan: 1. Routine care. Patient be discharged home within the next 24-48 hours. 2. Anemia with hemoglobin 8.7. Patient appears to be tolerating this well. Anemia most probably secondary to blood loss at time of surgery plus related iron loss.
[2020-09-07] MEDS: Ibuprofen 600 MG Tab PO PRN ×2 (15:11→21:36)
[2020-09-08] MEDS: Ibuprofen 600 MG Tab PO PRN (08:10)
[2020-09-08] MEDS: Prenatal Multivitamin with Calcium/Folic Acid/Iron Tab PO SCH (08:10)
[2020-09-08] MEDS: Docusate Sodium 100 MG Cap PO SCH (08:10)
[2020-09-08 08:46] VITALS: BP 119/70; PULSE 95
--- NOTE | 2020-09-08 10:06 | PCM.DCSUM1 ---
Discharge Summary - Hospital Course Free Text/Narrative:: Jemima Crawford is a 34-year-old -0-2-2 female at 38 weeks 1 day (ANGELLA 09/13/2020) by a 6-week ultrasound on 08/31/2020 who presented for preoperative visit as well as routine care visit. She was scheduled for a section on 09/06/2020 when she will be 39 weeks 0 days. She was overall doing well at that time and did not have any significant concerns. Patient underwent preoperative evaluation and then was taken to surgery on 09/06/2020. She delivered a Live female delivered in vertex presentation at 08 19. Apgars were 6 and 9. weight was 3290 g (7 lbs 4.1 oz). Vacuum assistance was used for delivery of the and there were 3 total pop offs during delivery of the . A partial Maylard incision was made of the left rectus abdominis muscles approximately [facility] across the muscles and repaired after the delivery of the infant. Pre Op Diagnosis: 39 weeks gestational age, history of section, desires repeat section Post-Op Diagnosis: Same Anesthesia Technique: Spinal Primary Surgeon: Arnoldo Loera Anesthesia Provider: Hema Farnsworth Conveyor Maintenance Mechanic: Kaylynn Schaffer patient is nursing. Her first postoperative day hemoglobin is 8.7. This was expected as she had a significant loss during the course of the surgery. She is doing well with this however. Her vital signs are stable. She is afebrile. She is ambulating well. She is nursing without problems. She is desiring discharge home. Condition: Good - Discharge Data Discharge Date: 09/08/20 Discharge Disposition: Home, Self-Care 01 Condition: Good - Referral to Home Health Primary Care Physician: Arnoldo Loera MD - Patient Summary/Data Operative Procedure(s) Performed: Repeat section with vacuum assistance for delivery of the infant and Maylard incision of half of the left rectus abdominis muscles. - Patient Instructions Diet: Regular Diet as Tolerated (Nursing diet with increased calories and calcium as recommended) Activity: As Tolerated (No intercourse or tampons until seen back. No lifting greater than 15 pounds or driving a car x7-10 days.) Driving: Do Not Drive Showering/Bathing: May Shower Wound/Incision Care: Keep Operative Site/Wound Site Clean and Dry Notify Provider of: Fever, Increased Pain, Swelling and Redness, Nausea and/or Vomiting - Discharge Plan Home Medications: Home Meds No122/Iron/Folic Acid [ Multi Tablet] 1 each PO DAILY 07/26/19 [History] Ibuprofen [Motrin] 600 mg PO Q6H PRN tablet 09/08/20 [Rx] Patient Handouts: , Care After Delivery Referrals: Arnoldo Loera MD [Primary Care Provider] - - Discharge Summary/Plan Comment DC Time >30 min.: No Discharge Summary/Plan Comment: Discharge instructions: 1. Discharge home 2. Diet, activity and follow-up discussed with patient. Recommend nursing diet with increased calories and calcium. 3. Precautions given concern increased pain, bleeding, temperature, signs/symptoms of DVT/PE. 4. Medications per home medication was printed, discussed with and given to the patient. 5. Return to clinic-[facility] in 2 weeks. Diagnosis: 1. Term [id number] 2. Anemia secondary to blood loss at surgery and due to . Condition: Good - Patient Data Vitals - Most Recent: Last Vital Signs Temp 36.7 C 09/08/20 08:16 Pulse 95 09/08/20 08:16 Resp 16 09/08/20 03:28 BP 119/70 09/08/20 08:16 Pulse Ox 97 09/08/20 08:16 Weight - Most Recent: 106.141 kg I&O - Last 24 hours: Intake & Output 09/07/20 09/08/20 09/08/20 22:59 06:59 14:59 Intake Total 500 Balance 500 Med Orders - Current: Current Medications Diphenhydramine HCl (Diphenhydramine 50 Mg/Ml Sdv) 25 mg IVPUSH Q6H PRN PRN Reason: Itching or Nausea Docusate Sodium (Docusate Sodium 100 Mg Cap) 100 mg PO BID HERMAN Last Admin: 09/08/20 08:10 Dose: 100 mg Documented by: Ephedrine Sulfate (Ephedrine 50 Mg/Ml Sdv) 5 mg IVPUSH SEECOMMENT PRN PRN Reason: Other Oxytocin/Lactated Ringer's (Pitocin In Lr 10 Units/1,000 Ml) 10 unit in 1,000 mls @ 100 mls/hr IV .CONTINUOUS HERMAN Ibuprofen (Ibuprofen 600 Mg Tab) 600 mg PO Q6H PRN PRN Reason: mild pain or fever Last Admin: 09/08/20 08:10 Dose: 600 mg Documented by: Magnesium Hydroxide (Magnesium Hydroxide 400 Mg/5 Ml Susp 30 Ml Cup) 30 ml PO BEDTIME PRN PRN Reason: Constipation Naloxone HCl (Naloxone 0.4 Mg/Ml Sdv) 0.1 mg IVPUSH SEECOMMENT PRN PRN Reason: Respiratory Depression Ondansetron HCl (Ondansetron 4 Mg Tab.Dis) 4 mg PO Q4H PRN PRN Reason: Nausea/Vomiting Oxycodone/Acetaminophen (Acetaminophen/Oxycodone 325-5 Mg Tab) 1 tab PO Q6H PRN PRN Reason: Pain (moderate 4-6) Oxycodone/Acetaminophen (Acetaminophen/Oxycodone 325-5 Mg Tab) 2 tab PO Q6H PRN PRN Reason: Pain (severe 7-10) Prenat Multivit/Bremer/Iron/Folic Ac ( Multivitamin With Calcium/Folic Acid/Iron Tab) 1 each PO DAILY HERMAN Last Admin: 09/08/20 08:10 Dose: 1 each Documented by: Discontinued Medications Bupivacaine HCl (Bupivacaine 0.5% 30 Ml Sdv) Confirm Administered Dose 30 ml .ROUTE .STK-MED ONE Stop: 09/06/20 07:18 Last Admin: 09/06/20 08:06 Dose: 20 ml Documented by: Cefazolin Sodium (Cefazolin 1 Gm Vial) Confirm Administered Dose 2 gm .ROUTE .STK-MED ONE Stop: 09/06/20 07:08 Cefazolin Sodium (Cefazolin 1 Gm Vial) Confirm Administered Dose 2 gm .ROUTE .STK-MED ONE Stop: 09/06/20 07:12 Citric Acid/Sodium Citrate (Citric Acid/Sodium Citrate Solution 30 Ml Cup) 30 ml PO ONETIME ONE Stop: 09/06/20 05:09 Last Admin: 09/06/20 07:03 Dose: 30 ml Documented by: Diphenhydramine HCl (Diphenhydramine 50 Mg/Ml Sdv) 25 mg IVPUSH Q6H PRN PRN Reason: Itching Stop: 09/06/20 23:00 Last Admin: 09/06/20 09:37 Dose: 25 mg Documented by: Ephedrine Sulfate (Ephedrine 50 Mg/Ml Sdv) Confirm Administered Dose 50 mg .ROUTE .STK-MED ONE Stop: 09/06/20 07:08 Lactated Ringer's (Ringers, Lactated) 1,000 mls @ 125 mls/hr IV ASDIRECTED [facility] Stop: 09/06/20 23:00 Last Admin: 09/06/20 06:22 Dose: 999 mls/hr Documented by: Lactated Ringer's (Ringers, Lactated) 1,000 mls @ 125 mls/hr IV ASDIRECTED [facility] Cefazolin Sodium/Dextrose 2 gm (/ Premix) 50 mls @ 100 mls/hr IV ONETIME ONE Stop: 09/06/20 05:37 Oxytocin/Lactated Ringer's (Pitocin In Lr 10 Units/1,000 Ml) 10 unit in 1,000 mls @ 100 mls/hr IV [facility]RECTED [facility]; Protocol Lactated Ringer's (Ringers, Lactated) Confirm Administered Dose 1,000 mls @ as directed .ROUTE .[facility] ONE Stop: 09/06/20 07:19 Lactated Ringer's (Ringers, Lactated) Confirm Administered Dose 1,000 mls @ as directed .ROUTE .[facility] ONE Stop: 09/06/20 08:00 Dextrose/Lactated Ringer's (Dextrose 5%-Lactated Ringers) 1,000 mls @ 125 mls/hr IV [facility]RECTED [facility] Stop: 09/06/20 18:38 Last Admin: 09/06/20 10:50 Dose: 125 mls/hr Documented by: Ketorolac Tromethamine (Ketorolac 15 Mg/Ml Sdv) Confirm Administered Dose 15 mg .ROUTE .STK-MED ONE Stop: 09/06/20 07:14 Ketorolac Tromethamine (Ketorolac 15 Mg/Ml Sdv) 15 mg IVPUSH Q6H [facility] Stop: 09/07/20 02:31 Last Admin: 09/07/20 02:35 Dose: 15 mg Documented by: Lidocaine/Sodium Bicarbonate (Lidocaine 1%/Sod Bicarbonate In Ns 8.4% 1 Ml Syringe) 0.25 ml IDERM ONETIME PRN PRN Reason: Prior to IV Start Stop: 09/06/20 18:00 Metoclopramide HCl (Metoclopramide 10 Mg/2 Ml Sdv) 10 mg IVPUSH ONETIME ONE Stop: 09/06/20 05:09 Last Admin: 09/06/20 07:03 Dose: 10 mg Documented by: Morphine Sulfate (Morphine Pf 10 Mg/10 Ml Sdv) Confirm Administered Dose 10 mg .ROUTE .STK-MED ONE Stop: 09/06/20 07:08 Oxytocin (Oxytocin 10 Units/1 Ml Sdv) Confirm Administered Dose 10 unit .ROUTE .STK-MED ONE Stop: 09/06/20 07:14 Sodium Chloride (Sodium Chloride 0.9% 10 Ml Syringe) 10 ml FLUSH ASDIRECTED PRN PRN Reason: Keep Vein Open Stop: 09/06/20 18:00 Sodium Chloride (Sodium Chloride 0.9% 10 Ml Syringe) 10 ml FLUSH ASDIRECTED PRN PRN Reason: Keep Vein Open
== END 2020-09-08 11:30 | disposition home or self-care (01) | DRG 787 ==
LOC: JD.OB 04:59
PROVIDERS: ADMIT Obstetrics & Gynecology; ATTEND Obstetrics & Gynecology
PROC: 10D00Z1 Extraction of Products of Conception, Low, Open Approach (ICD-10-PCS; principal; 2020-09-06)
DX: O34.211 Maternal care for low transverse scar from previous cesarean delivery (principal); D62 Acute posthemorrhagic anemia; Z37.0 Single live birth; O99.214 Obesity complicating childbirth; E66.9 Obesity, unspecified; O99.62 Diseases of the digestive system complicating childbirth; K59.09 Other constipation; Z20.822 Contact with and (suspected) exposure to COVID-19; O99.02 Anemia complicating childbirth; Z3A.39 39 weeks gestation of pregnancy; E61.1 Iron deficiency
CPT/HCPCS: 01961; 36415; 59025; 85025; 86592; 86850; 86900; 86901; A9270-GY; J0690; J1200; J1885; J2270; J2590; J2765; J3490; J7120; J7121; U0002